=== PATIENT | female | born 2000 | race Caucasian/White ===

== ENCOUNTER 2022-06-07 11:45 | Inpatient (IN) ==
[2022-06-07] MEDS ORDERED: OXYTOCIN 30 UNITS/500 ML BAG IV PRN ×2 (12:51→13:45)
[2022-06-07] MEDS ORDERED: LIDOCAINE 1% LOCAL 20 ML VIAL INFIL PRN (12:51)
[2022-06-07] MEDS ORDERED: BETAMETH SOD PHOS/ACETATE IA 6 MG/ML IM STA (12:54)
--- NOTE | 2022-06-07 12:59 | Labor Progress Brief Note ---
Date of Service June 07, 2022 Assessment & Plan (1) : (2) premature rupture of membranes (PPROM) delivered, current hospitalization: Plan: pt is a 21 yo G1 @ 36.5 weeks PPROM at 10;00hrs SROM confirmed by Nitrazine FHR; CAT1 Ctx; absent VE: Ft/post EFW; 6lbs GBS status ; Unknown Plan Admit PCN for GBS prophylaxis Pitocin augmentation Results & Data ([facility]) Vital Signs (Past 12 Hours) Vital Signs Pulse BP 06/07/22 12:10 118 H 112/72
[2022-06-07 13:27] LABS: Hematocrit (blood only) 33.4 % (34.1-44.9); Hemoglobin 11.9 g/dl (12.0-16.0); Mean Corpuscular Hemoglobin 32.6 pg (25.0-34.0); Mean Corpuscular Hgb Conc 35.6 g/dL (32.0-36.0); Mean Corpuscular Volume 91.5 fL (80.0-100.0); Platelet Count 157 K/uL (130-400); RDW Coefficient of Variation 12.8 % (11.5-14.5); RDW Standard Deviation 42.5 fL (36.4-46.3); Red Blood Count 3.65 M/uL (3.93-5.22); White Blood Count 9.54 K/ul (4.8-10.8)
[2022-06-07] MEDS ORDERED: PENICILLIN G POTASSIUM 6 MU in DEXTROSE 5% 250 ML IV ONE (13:30)
[2022-06-07] MEDS: LACTATED RINGER'S 1,000 ML IV PRN ×2 (13:48→21:15)
[2022-06-07] MEDS: PENICILLIN G POTASSIUM 3 MU in DEXTROSE 5% 100 ML IV PRN ×2 (17:47→21:40)
[2022-06-07] MEDS ORDERED: ePHEDrine sulfate 50 MG/ML AMP ONE (18:44)
[2022-06-07] MEDS ORDERED: fentaNYL 2MCG/ML ROPIVACAINE 1.25MG/ML 100 ML BAG EPI ONE (18:45)
[2022-06-07] MEDS ORDERED: LIDOCAINE 2%/EPINEPHRINE 1:200,000 20 ML SDV ONE (18:45)
[2022-06-07] MEDS ORDERED: BUPIVACAINE 0.25% 30 ML VIAL ONE (18:45)
[2022-06-07] MEDS ORDERED: SODIUM CHLORIDE 0.9% INJ 10 ML VIAL ONE (18:45)
[2022-06-07] MEDS ORDERED: fentaNYL citrate 100 MCG/2 ML VIAL ONE (18:45)
--- NOTE | 2022-06-07 18:48 | Anesthesiology Consultation ---
Date of Service June 07, 2022 Assessment & Plan (1) Encounter for pre-operative examination: Chart Review Chart Review: Acceptable Risk for Labor Epidural History Height/Weight Height: 4 ft 8 in Weight: 61.689 kg Allergies Allergy/AdvReac Type Severity Reaction Status Date / Time omeprazole Allergy Intermediate Gastrointestinal Verified 06/07/22 16:05 Upset Medications Home Medications Medication Instructions Recorded Confirmed Last Taken prenat.vits,kolby,xso-vaux-tgdbo 1 tab PO DAILY 06/07/22 06/07/22 06/07/22 Active Medications Generic Name Dose Route Start Last Admin Trade Name Freq PRN Reason Stop Dose Admin Lactated Ringer's 1,000 mls @ 125 mls/hr 06/07/22 12:51 06/07/22 18:42 Lr IV 06/09/22 12:50 999 mls/hr .Q8H PRN Infusion L&D Protocol Protocol Penicillin G Potassium 3 mu/ 106 mls @ 100 mls/hr 06/07/22 15:51 06/07/22 17:47 Dextrose IV 06/17/22 15:50 100 mls/hr Q4H PRN Administration GBS(+) Until Delivery Oxytocin 30 units in 500 mls @ 6 mls/hr 06/07/22 13:45 06/07/22 15:22 Pitocin IV 06/09/22 13:44 0.36 units/hr .Q24H PRN 6 mls/hr Labor Induction/Augmentation Titration Protocol 0.36 UNITS/HR Past Medical History Medical History (Updated 06/07/22 @ 18:48 by Cyrus Herrera MD) Concussion Concussion with loss of consciousness Past Surgical History Surgical History (Updated 06/07/22 @ 18:47 by Cyrus Herrera MD) No significant past surgical history Social History Smoking Status: Never smoker Hx Alcohol Use: No Hx Substance Use: No substance use type: prescription drug Last Used Substance Other:: has medical marijuana card, currently not using since Physical Exam Vital Signs Last Vital Signs Temp 36.8 C 06/07/22 18:33 Pulse 79 06/07/22 17:52 Resp 20 06/07/22 18:33 BP 118/78 06/07/22 17:52 Testing Laboratory Results 06/07/22 13:04
[2022-06-07] MEDS ORDERED: fentaNYL 2MCG/ML ROPIVACAINE 1.25MG/ML 100 ML BAG EPI PRN (19:37)
[2022-06-07] MEDS ORDERED: NALOXONE HCL 1 MG in SODIUM CHLORIDE 0.9% 1000ML 1,000 ML IV PRN (19:37)
[2022-06-07] MEDS ORDERED: ePHEDrine sulfate 50 MG/ML AMP IV PRN (19:37)
[2022-06-07] MEDS ORDERED: ONDANSETRON INJ 2 MG/ML 2 ML VIAL IV PRN (19:37)
[2022-06-07] MEDS ORDERED: NALOXONE HCL 0.4 MG/1 ML VIAL/CARP IV PRN (19:37)
--- NOTE | 2022-06-07 20:36 | Labor Progress Brief Note ---
Date of Service June 07, 2022 Assessment & Plan (1) premature rupture of membranes (PPROM) delivered, current hos pitalization: Plan: Pt doing well No complaints PPROM Epidural placed FHR; CAT1 Ctx; 2-3mins VE; /-2 Pit; 6mu continue with pit augmentation Results & Data ([facility]) Vital Signs (Past 12 Hours) Vital Signs Temp Pulse Resp BP Pulse Ox 06/07/22 19:53 36.7 C 18 06/07/22 20:32 78 97 06/07/22 20:27 93 H 97 06/07/22 20:25 75 97/58 L 06/07/22 20:22 85 96 06/07/22 20:17 89 96 06/07/22 20:15 72 94 06/07/22 20:12 79 97 06/07/22 20:09 78 102/55 L 06/07/22 20:07 83 98 06/07/22 20:05 91 H 93 06/07/22 20:02 89 97 06/07/22 19:57 79 98 06/07/22 19:52 74 99 06/07/22 19:53 75 108/64 06/07/22 19:48 87 98 06/07/22 19:47 79 182/111 H 06/07/22 19:43 101 H 97 06/07/22 19:39 101 H 91 06/07/22 19:37 86 99 06/07/22 19:35 81 100/58 L 06/07/22 19:34 18 06/07/22 19:34 36.7 C 18 06/07/22 19:32 98 06/07/22 19:32 93 H 06/07/22 19:33 83 96/53 L 06/07/22 19:31 88 93 06/07/22 19:32 75 92/51 L 06/07/22 19:27 97 06/07/22 19:27 75 06/07/22 19:27 78 99/59 L 06/07/22 19:24 90 94 06/07/22 19:22 91 H 97 06/07/22 19:17 109 H 97 06/07/22 19:12 106 H 100 06/07/22 19:07 111 H 98 06/07/22 18:33 20 06/07/22 18:33 36.8 C 20 06/07/23 17:52 79 118/78 06/07/22 13:50 18 06/07/22 13:50 18 06/07/22 16:43 81 124/77 06/07/22 12:06 06/07/22 12:06 36.9 C 06/07/22 15:21 98 H 120/81 06/07/22 14:29 83 118/70 06/07/22 12:10 118 H 112/72
[2022-06-08] MEDS: LACTATED RINGER'S 1,000 ML IV PRN ×2 (00:46→05:37)
[2022-06-08] MEDS: PENICILLIN G POTASSIUM 3 MU in DEXTROSE 5% 100 ML IV PRN ×2 (01:30→05:35)
--- NOTE | 2022-06-08 01:33 | Labor Progress Brief Note ---
Date of Service June 08, 2022 Assessment & Plan (1) premature rupture of membranes (PPROM) delivered, current hos pitalization: Plan Late Entry Note Pt doing well Poor tracing from ext. monitor scalp placed VE; 10/100/-2 ctx 2-3mins Ctx. variables Pitocin d/c oxygen given FHR returned to baseline Continue monitoring Results & Data ([facility]) Vital Signs (Past 12 Hours) Vital Signs Temp Pulse Resp BP Pulse Ox 06/07/22 19:53 36.7 C 18 06/08/22 01:27 95 H 96 06/08/22 01:23 97 H 113/76 06/08/22 01:22 90 97 06/08/22 01:17 98 H 96 06/08/22 01:12 113 H 95 06/08/22 01:08 103 H 108/70 06/08/22 01:07 104 H 97 06/08/22 01:02 100 H 97 06/08/22 00:57 103 H 98 06/08/22 00:53 98 H 109/71 06/08/22 00:52 91 H 98 06/07/22 23:45 18 06/07/22 23:45 37.1 C 18 06/08/22 00:47 98 H 97 06/08/22 00:42 89 99 06/08/22 00:38 83 115/76 06/08/22 00:37 89 98 06/08/22 00:32 89 99 06/08/22 00:27 103 H 100 06/08/22 00:23 86 124/75 06/08/22 00:22 94 H 100 06/08/22 00:17 139 H 100 06/08/22 00:12 107 H 100 06/08/22 00:09 88 113/72 06/08/22 00:07 136 H 97 06/08/22 00:02 94 H 97 06/07/22 23:57 83 95 06/07/22 23:52 100 H 96 06/07/22 23:53 83 102/57 L 06/07/22 23:47 95 H 95 06/07/22 23:42 76 94 06/07/22 23:38 93 H 94/53 L 06/07/22 23:37 93 H 95 06/07/22 23:32 79 94 06/07/22 23:27 78 94 06/07/22 23:22 87 95 06/07/22 23:23 81 97/55 L 06/07/22 23:17 94 H 96 06/07/22 23:12 83 96 06/07/22 23:08 75 95/52 L 06/07/22 23:07 80 96 06/07/22 23:02 93 H 96 06/07/22 22:57 84 96 06/07/22 22:52 83 96 06/07/22 22:53 77 101/63 06/07/22 22:47 121 H 96 06/07/22 22:42 78 94 06/07/22 22:38 89 100/58 L 06/07/22 22:37 78 94 06/07/22 22:32 73 94 06/07/22 22:27 78 95 06/07/22 22:24 80 93/53 L 06/07/22 22:22 79 96 06/07/22 22:17 80 97 06/07/22 22:12 75 96 06/07/22 22:09 85 96/53 L 06/07/22 22:07 84 96 06/07/22 22:02 96 H 96 06/07/22 21:57 93 H 96 06/07/22 21:54 82 104/58 L 06/07/22 21:52 86 96 06/07/22 21:45 18 06/07/22 21:45 37.1 C 18 06/07/22 21:47 80 95 06/07/22 21:42 79 95 06/07/22 21:39 88 92/55 L 06/07/22 21:37 96 H 96 06/07/22 21:32 88 95 06/07/22 21:27 81 94 06/07/22 21:23 99 H 105/62 06/07/22 21:22 102 H 97 06/07/22 21:17 95 H 97 06/07/22 21:12 80 94 06/07/22 21:08 83 90/50 L 06/07/22 21:07 73 94 06/07/22 21:02 78 95 06/07/22 20:57 74 96 06/07/22 20:54 83 93/54 L 06/07/22 20:52 83 96 06/07/22 20:47 82 96 06/07/22 20:46 75 94 06/07/22 20:43 89 103/54 L 06/07/22 20:42 79 97 06/07/22 20:37 99 H 98 06/07/22 20:32 78 97 06/07/22 20:27 93 H 97 06/07/22 20:25 75 97/58 L 06/07/22 20:22 85 96 06/07/22 20:17 89 96 06/07/22 20:15 72 94 06/07/22 20:12 79 97 06/07/22 20:09 78 102/55 L 06/07/22 20:07 83 98 06/07/22 20:05 91 H 93 06/07/22 20:02 89 97 06/07/22 19:57 79 98 06/07/22 19:52 74 99 06/07/22 19:53 75 108/64 06/07/22 19:48 87 98 06/07/22 19:47 79 182/111 H 06/07/22 19:43 101 H 97 06/07/22 19:39 101 H 91 06/07/22 19:37 86 99 06/07/22 19:35 81 100/58 L 06/07/22 19:34 18 06/07/22 19:34 36.7 C 18 06/07/22 19:32 98 06/07/22 19:32 93 H 06/07/22 19:33 83 96/53 L 06/07/22 19:31 88 93 06/07/22 19:32 75 92/51 L 06/07/22 19:27 97 06/07/22 19:27 75 06/07/22 19:27 78 99/59 L 06/07/22 19:24 90 94 06/07/22 19:22 91 H 97 06/07/22 19:17 109 H 97 06/07/22 19:12 106 H 100 06/07/22 19:07 111 H 98 06/07/22 18:33 20 06/07/22 18:33 36.8 C 20 06/07/22 17:52 79 118/78 06/07/22 13:50 18 06/07/22 13:50 18 06/07/22 16:43 81 124/77 06/07/22 15:21 98 H 120/81 06/07/22 14:29 83 118/70
[2022-06-08] MEDS ORDERED: NURSING L&D Epidural Breakthrough Pain Update ONE (06:17)
[2022-06-08] MEDS ORDERED: SODIUM CHLORIDE 0.9% INJ 10 ML VIAL ONE (07:43)
[2022-06-08] MEDS ORDERED: BUPIVACAINE 0.25% 30 ML VIAL ONE (07:43)
[2022-06-08] MEDS ORDERED: fentaNYL citrate 100 MCG/2 ML VIAL ONE (08:19)
--- NOTE | 2022-06-08 08:28 | Obstetrical Progress Note ---
Date of Service June 08, 2022 Assessment & Plan (1) premature rupture of membranes (PPROM) delivered, current hos pitalization: Pt doing well VE;10/100/+1 Pitocin; 12 FHR; CAT1 . early decel will start pushing Anticipate VD Results & Data ([facility]) Vital Signs (Past 12 Hours) Vital Signs Temp Pulse Resp BP Pulse Ox 06/08/22 07:15 36.7 C 18 06/08/22 08:22 133 H 98/63 L 93 06/08/22 08:17 131 H 97 06/08/22 08:12 118 H 94 06/08/22 08:07 110 H 98 06/08/22 08:08 101 H 124/79 06/08/22 08:02 125 H 125/72 94 06/08/22 07:57 99 H 124/76 96 06/08/22 07:52 114 H 125/80 97 06/08/22 07:47 109 H 99 06/08/22 07:42 121 H 92 06/08/22 07:40 107 H 128/80 06/08/22 07:37 108 H 96 06/08/22 07:32 107 H 97 06/08/22 07:27 98 H 96 06/08/22 07:24 100 H 131/78 06/08/22 07:22 108 H 92 06/08/22 07:23 108 H 86 L 06/08/22 07:17 105 H 90 06/08/22 07:12 124 H 93 06/08/22 07:10 121 H 129/75 06/08/22 07:07 113 H 93 06/08/22 07:02 107 H 97 06/08/22 06:57 111 H 98 06/08/22 06:54 102 H 112/64 06/08/22 06:52 94 H 95 06/08/22 06:47 101 H 96 06/08/22 06:42 108 H 97 06/08/22 06:39 141 H 123/56 L 06/08/22 06:37 109 H 96 06/08/22 06:32 105 H 95 06/08/22 06:27 105 H 95 06/08/22 06:24 106 H 121/83 06/08/22 06:22 113 H 96 06/08/22 06:17 106 H 95 06/08/22 06:12 101 H 95 06/08/22 06:10 111 H 112/73 06/08/22 06:07 120 H 96 06/08/22 06:02 134 H 93 06/08/22 05:57 112 H 95 06/08/22 05:54 89 118/60 06/08/22 05:52 106 H 95 06/08/22 05:47 115 H 95 06/08/22 05:30 18 06/08/22 05:30 18 06/08/22 05:42 100 H 95 06/08/22 05:39 100 H 116/58 L 06/08/22 05:37 96 H 95 06/08/22 05:32 102 H 96 06/08/22 05:27 137 H 96 06/08/22 05:24 125 H 114/59 L 06/08/22 05:22 108 H 96 06/08/22 05:17 87 95 06/08/22 05:12 114 H 96 06/08/22 05:10 86 114/63 06/08/22 05:07 98 H 95 06/08/22 05:00 18 06/08/22 05:00 18 06/08/22 05:02 91 H 95 06/08/22 04:57 89 95 06/08/22 04:54 83 103/59 L 06/08/22 04:52 90 95 06/08/22 04:47 96 H 95 06/08/22 04:42 92 H 96 06/08/22 04:39 98 H 104/64 06/08/22 04:37 101 H 96 06/08/22 04:30 18 06/08/22 04:30 18 06/08/22 04:32 91 H 97 06/08/22 04:27 106 H 98 06/08/22 04:25 115 H 108/63 06/08/22 04:22 102 H 98 06/08/22 04:00 18 06/08/22 04:00 18 06/08/22 04:17 106 H 97 06/08/22 04:12 100 H 96 06/08/22 04:09 95 H 113/69 06/08/22 04:07 112 H 97 06/08/22 04:02 106 H 96 06/08/22 03:57 94 H 96 06/08/22 03:54 115 H 101/61 06/08/22 03:52 118 H 97 06/08/22 03:47 132 H 98 06/08/22 03:42 87 96 06/08/22 03:40 93 H 96/57 L 06/08/22 03:37 93 H 96 06/08/22 03:32 116 H 97 06/08/22 03:27 106 H 98 06/08/22 03:25 125 H 106/57 L 06/08/22 03:22 87 97 06/08/22 03:17 91 H 97 06/08/22 03:12 102 H 97 06/08/22 03:08 91 H 102/61 06/08/22 03:07 90 96 06/08/22 03:02 83 98 06/08/22 02:57 84 97 06/08/22 02:53 117 H 108/62 06/08/22 02:52 79 96 06/08/22 02:47 89 97 06/08/22 02:42 92 H 96 06/08/22 02:40 89 97/56 L 06/08/22 02:37 101 H 96 06/08/22 02:32 107 H 96 06/08/22 02:27 106 H 95 06/08/22 02:23 100 H 113/63 06/08/22 02:22 100 H 96 06/08/22 02:17 96 H 96 06/08/22 02:12 36.7 C 100 H 20 96 06/08/22 02:09 93 H 110/63 06/08/22 02:07 100 H 96 06/08/22 02:02 95 H 96 06/08/22 01:57 92 H 96 06/08/22 01:53 93 H 104/61 06/08/22 01:52 111 H 97 06/08/22 01:47 101 H 95 06/08/22 01:42 100 H 96 06/08/22 01:37 103 H 95 06/08/22 01:38 99 H 102/63 06/08/22 01:32 94 H 96 06/08/22 01:27 95 H 96 06/08/22 01:23 97 H 113/76 06/08/22 01:22 90 97 06/08/22 01:17 98 H 96 06/08/22 01:12 113 H 95 06/08/22 01:08 103 H 108/70 06/08/22 01:07 104 H 97 06/08/22 01:02 100 H 97 06/08/22 00:57 103 H 98 06/08/22 00:53 98 H 109/71 06/08/22 00:52 91 H 98 06/07/22 23:45 18 06/07/22 23:45 37.1 C 18 06/08/22 00:47 98 H 97 06/08/22 00:42 89 99 06/08/22 00:38 83 115/76 06/08/22 00:37 89 98 06/08/22 00:32 89 99 06/08/22 00:27 103 H 100 06/08/22 00:23 86 124/75 06/08/22 00:22 94 H 100 06/08/22 00:17 139 H 100 06/08/22 00:12 107 H 100 06/08/22 00:09 88 113/72 06/08/22 00:07 136 H 97 06/08/22 00:02 94 H 97 06/07/22 23:57 83 95 06/07/22 23:52 100 H 96 06/07/22 23:53 83 102/57 L 06/07/22 23:47 95 H 95 06/07/22 23:42 76 94 06/07/22 23:38 93 H 94/53 L 06/07/22 23:37 93 H 95 06/07/22 23:32 79 94 06/07/22 23:27 78 94 06/07/22 23:22 87 95 06/07/22 23:23 81 97/55 L 06/07/22 23:17 94 H 96 06/07/22 23:12 83 96 06/07/22 23:08 75 95/52 L 06/07/22 23:07 80 96 06/07/22 23:02 93 H 96 06/07/22 22:57 84 96 06/07/22 22:52 83 96 06/07/22 22:53 77 101/63 06/07/22 22:47 121 H 96 06/07/22 22:42 78 94 06/07/22 22:38 89 100/58 L 06/07/22 22:37 78 94 06/07/22 22:32 73 94 06/07/22 22:27 78 95 06/07/22 22:24 80 93/53 L 06/07/22 22:22 79 96 06/07/22 22:17 80 97 06/07/22 22:12 75 96 06/07/22 22:09 85 96/53 L 06/07/22 22:07 84 96 06/07/22 22:02 96 H 96 06/07/22 21:57 93 H 96 06/07/22 21:54 82 104/58 L 06/07/22 21:52 86 96 06/07/22 21:45 18 06/07/22 21:45 37.1 C 18 06/07/22 21:47 80 95 06/07/22 21:42 79 95 06/07/22 21:39 88 92/55 L 06/07/22 21:37 96 H 96 06/07/22 21:32 88 95 06/07/22 21:27 81 94 06/07/22 21:23 99 H 105/62 06/07/22 21:22 102 H 97 06/07/22 21:17 95 H 97 06/07/22 21:12 80 94 06/07/22 21:08 83 90/50 L 06/07/22 21:07 73 94 06/07/22 21:02 78 95 06/07/22 20:57 74 96 06/07/22 20:54 83 93/54 L 06/07/22 20:52 83 96 06/07/22 20:47 82 96 06/07/22 20:46 75 94 06/07/22 20:43 89 103/54 L 06/07/22 20:42 79 97 06/07/22 20:37 99 H 98 06/07/22 20:32 78 97 06/07/22 20:27 93 H 97
--- NOTE | 2022-06-08 11:20 | Delivery Summary ---
VAGINAL DELIVERY NOTE: The patient is a 21-year-old G1, P0 at 36 weeks and 6 days, who comes in with spontaneous rupture of membranes, clear fluid. She was augmented with oxytocin, had an epidural for her labor. She deliver ed a spontaneous vaginal delivery over an intact perineum of a live female, ELLE position. Apgars wer e 8 and 9. weight is pending. Delayed cord clamping was accomplished. Cord blood was obtaine d. Placenta delivered spontaneously and intact. The baby placed on the mother's chest for bonding. After the placenta was delivered, there was a little bit of gush of blood. Fundal pressure was appl ied and the bladder was emptied of 200 mL of clear urine. Pitocin was started with the IV continuous ly, baby stable. No further bleeding. Final sponge, needle and instrument counts were found to be c orrect. Estimated blood loss 250 mL. The patient was stable and normal recovery . Job ID: [id number]
[2022-06-08] MEDS ORDERED: bisacodyL 10 MG SUPP PR PRN (11:27)
[2022-06-08] MEDS ORDERED: HYDROCORTISONE ACETATE 25 MG SUPP PR PRN (11:27)
[2022-06-08] MEDS ORDERED: OXYTOCIN 30 UNITS/500 ML BAG IV PRN (11:27)
[2022-06-08] MEDS ORDERED: DIPHTHERIA/TETANUS/PERTUSSIS 0.5mL SYR/VIAL (Age 7+yrs) IM ONE (11:27)
[2022-06-08] MEDS ORDERED: BENZOCAINE 20% AER SPR 82.5 GM CAN EXT PRN (11:27)
--- NOTE | 2022-06-08 12:39 | Anesthesia Procedure Note ---
Date of Service June 08, 2022 Anesthesia Post Epidural Note Vital Signs Vital Signs: Temp Pulse Resp BP Pulse Ox 36.9 C 93 H 18 101/58 L 85 L 06/08/22 09:00 06/08/22 11:44 06/08/22 11:45 06/08/22 11:44 06/08/22 10:13 Pain Intensity Lower Back: Pain Intensity: 1 Notes Mental Status: alert / awake / arousable and participated in evaluation Nausea / Vomiting: adequately controlled Pain: adequately controlled Airway Patency, RR, SpO2: stable & adequate BP & HR: stable & adequate Hydration State: stable & adequate Neuraxial Anesthesia: was administered and sensory block is resolving Anesthetic Complications: no major complications apparent and Pt Satisfied with anesthetic care Epidural: Removed without complications and With tip intact
[2022-06-08] MEDS: ACETAMINOPHEN 325 MG TAB PO PRN (19:37)
[2022-06-08] MEDS: DOCUSATE SODIUM 100 MG CAP PO SCH (19:37)
[2022-06-09] MEDS: ACETAMINOPHEN 325 MG TAB PO PRN (03:03)
[2022-06-09] MEDS ORDERED: FERROUS SULFATE 325 MG TAB PO SCH (08:00)
--- NOTE | 2022-06-09 09:37 | Obstetrical Progress Note ---
Date of Service June 09, 2022 Assessment & Plan Admission and Anticipated Discharge Date Admission Date: June 08, 2022 Subjective Patient is seen and examined. She feels well, no complaints. Ambulating without dizziness Voiding without difficulty Tolerating regular diet with out N&V Bleeding is minimal No fever/ chills/ CP/ SOB/ N&V/ Leg pain Breast feeding without problems Lab Results 06/07/22 06/07/22 Range/Units 12:08 13:04 WBC 9.54 (4.8-10.8) K/ul RBC 3.65 L (3.93-5.22) M/uL Hgb 11.9 L (12.0-16.0) g/dl Hct 33.4 L (34.1-44.9) % MCV 91.5 (80.0-100.0) fL MCH 32.6 (25.0-34.0) pg MCHC 35.6 (32.0-36.0) g/dL RDW Std Deviation 42.5 (36.4-46.3) fL RDW Coeff of Sameera 12.8 (11.5-14.5) % Plt Count 157 (130-400) K/uL MPV 10.0 (9.4-12.3) fL SARS-CoV-2, RNA, NAAT NEGATIVE (NEGATIVE) Vital Signs Temp Pulse Resp BP Pulse Ox O2 Del Method 06/09/22 03:00 36.5 C 88 18 100/69 Room Air 06/08/22 23:15 36.6 C 87 18 99/66 L 97 Room Air Hb: 8.1 Htc: 23.4 this morning PE: General: Alert, orientedx3, NAD Abd: soft, NT, fundus firm, below Umbilicus Perineum intact, Lochia rubra minimal Ext; NT, no edema AP: 21 yo s/p , ppd# 1 VSS Afebrile doing well Anemic, order IV iron Continue routine care All questions were answered D/C home tomorrow Results & Data ([facility]) Vital Signs (Past 12 Hours) Vital Signs Temp Pulse Resp BP Pulse Ox O2 Del Method 06/09/22 03:00 36.5 C 88 18 100/69 Room Air 06/08/22 23:15 36.6 C 87 18 99/66 L 97 Room Air
[2022-06-09] MEDS: PRENATAL VITAMIN 1 TAB PO SCH (09:45)
[2022-06-09] MEDS: DOCUSATE SODIUM 100 MG CAP PO SCH ×2 (09:46→19:33)
[2022-06-09] MEDS: IRON SUCROSE 200 MG in 0.9 % SODIUM CHLORIDE 100 ML IV ONE ×2 (11:14→11:50)
[2022-06-09 13:04] LABS: Hematocrit (blood only) 23.4 % (37.0-47.0); Hemoglobin 8.1 g/dl (12.0-16.0); Mean Corpuscular Hemoglobin 32.7 pg (25.0-34.0); Mean Corpuscular Hgb Conc 34.6 g/dL (32.0-36.0); Mean Corpuscular Volume 94.4 fL (80.0-100.0); Mean Platelet Volume 9.9 fL (9.4-12.4); Platelet Count 110 K/uL (130-400); RDW Coefficient of Variation 13.3 % (11.5-14.5); RDW Standard Deviation 46.1 fL (36.4-46.3); Red Blood Count 2.48 M/uL (4.20-5.40)
[2022-06-09] MEDS: IBUPROFEN 600 MG TAB PO PRN (16:01)
[2022-06-09] MEDS ORDERED: bisacodyL 5 MG TABEC PO SCH (20:00)
[2022-06-09] MEDS: FERROUS SULFATE 325 MG TAB PO SCH (20:24)
[2022-06-10] MEDS: IBUPROFEN 600 MG TAB PO PRN ×3 (05:03→15:45)
[2022-06-10 07:08] LABS: Hematocrit (blood only) 25.9 % (37.0-47.0); Hemoglobin 8.9 g/dl (12.0-16.0)
[2022-06-10] MEDS: FERROUS SULFATE 325 MG TAB PO SCH (09:14)
[2022-06-10] MEDS: PRENATAL VITAMIN 1 TAB PO SCH (09:14)
[2022-06-10] MEDS: DOCUSATE SODIUM 100 MG CAP PO SCH (09:14)
--- NOTE | 2022-06-10 10:03 | Obstetrical Progress Note ---
Date of Service June 10, 2022 Assessment & Plan (1) Normal course: Pt doing well PPD #2 No complaints d/c home with instructions Subjective Ambulation: ambulating normally Voiding: no voiding problems Passing Gas:: Yes Diet Tolerance:: regular diet Lochia:: Small Feeding Type:: breast feeding Review of Systems All systems reviewed & are unremarkable except as noted in HPI & below Physical Exam Constitutional WD/WN, vitals as above well developed and well nourished Eyes PERRL, conjunctivae normal, anicteric sclerae Neck trachea midline, no thyromegaly Respiratory normal respiratory effort, lungs clear to auscultation Auscultation: no crackles, no rales and no wheezes Cardiovascular RRR, no murmur, no edema Gastrointestinal (Abdomen) normal bowel sounds, soft, nontender, no hepatosplenomegaly Uterus is below umbilicus Musculoskeletal no cyanosis or clubbing, extremities motor strength 5/5 Skin no rashes, warm and dry Neurologic patellar DTR's 2+ bilat, sensation intact Psychiatric A+Ox3, euthymic affect Genitourinary normal external appearance Results & Data ([facility]) Vital Signs (Past 12 Hours) Vital Signs Temp Pulse Resp BP Pulse Ox O2 Del Method 06/10/22 09:00 36.6 C 83 18 100/68 Room Air 06/09/22 23:00 36.8 C 77 16 104/72 95 Room Air
[2022-06-10] MEDS: ACETAMINOPHEN 325 MG TAB PO PRN (12:56)
== END 2022-06-10 18:35 | disposition home or self-care (01) | DRG 807 ==
LOC: OPB 11:45 → 4S1 11:46 → 4E2 06-08 14:44

== ENCOUNTER 2024-01-18 01:38 | Inpatient (IN) ==
[2024-01-18] MEDS ORDERED: ACETAMINOPHEN 500 MG TAB PO PRN (02:34)
[2024-01-18] MEDS ORDERED: OXYTOCIN 30 UNITS/NSS 30 UNITS/500 ML BAG IV PRN ×2 (02:38→09:13)
[2024-01-18] MEDS ORDERED: LIDOCAINE 1% LOCAL 20 ML VIAL INFIL PRN (02:38)
--- NOTE | 2024-01-18 02:38 | History & Physical Report ---
Date of Service January 18, 2024 Assessment & Plan (1) Spontaneous rupture of amniotic membranes: Plan: 23 yo at 39.6 wks SROM at 00:15, back pain, VSSA febrile FHR reassuring GBS neg Plan to admit, labs, IVF, Oxytocin for IOL Patient desires to wait until her partner will arrive in 1.5 hours then start Oxytocin per protocol Continue to monitor History of Present Illness Chief Complaint: Leaking Primary Care Provider: Paco Wu MD Patient is a 23 yo at 39.6 wks, felt LOF at 00:15 in bed and kept leaking in the BR It was clear, happened one more time while getting into car No VB/ Ctxs but has back discomfort +FM Allergies Allergy/AdvReac Type Severity Reaction Status Date / Time omeprazole Allergy Intermediate Gastrointestinal Verified 01/18/24 02:04 Upset Home Medications Medication Instructions Recorded Confirmed Type prenat.vits,kolby,oty-cluw-hwois 1 tab PO DAILY 06/07/22 01/18/24 History ferrous sulfate 325 mg (65 mg 325 mg PO BID #30 tabs 06/10/22 01/18/24 Rx iron) tablet,delayed release Patient History Medical History Concussion Concussion with loss of consciousness Social History Smoking Status: Never smoker Hx Alcohol Use: No Hx Substance Use: No Preferred Language: [place] Communication Ability: Effective Chief Of Staff Required: Yes and Voice Beliefs That Will Affect Care: None marital status: Single Current Living Situation: Significant Other Current Living Situation Comment: lives iwth mother Other Information That Helps Us Care for You: No Feels Safe at Home: Yes Safety Concerns: Feels Safe At This Time Assistive Devices: None OB History PPRO at 36 wks, [employer] History No h/o STD's, no h/o GC/ Chlam/ HSV Review of Systems as per Subjective / HPI Physical Exam Constitutional: WD/WN, vitals as above Gastrointestinal (Abdomen): normal bowel sounds, soft, nontender, no hepatosplenomegaly Genitourinary: normal external appearance (dry) Manual OB Exam: + cervical dilation 3 cm, + cervical effacement 50% and + station -2 OB Exam Monitor Tracing: + external uterine monitor used and + category I Nitrazine neg Amnisure neg SSE: Pooling+, Ferning + on slide Results & Data Vital Signs (Past 12 Hours) Vital Signs Temp Pulse Resp BP 01/18/24 01:55 92 H 121/79 01/18/24 01:53 37.0 C 18
[2024-01-18 03:16] LABS: Hemoglobin 11.2 g/dl (12.0-16.0); Mean Corpuscular Hemoglobin 31.4 pg (25.0-34.0); Mean Corpuscular Hgb Conc 33.9 g/dL (32.0-36.0); Mean Corpuscular Volume 92.4 fL (80.0-100.0); Mean Platelet Volume 9.5 fL (9.4-12.4); Platelet Count 156 K/uL (130-400); RDW Coefficient of Variation 12.9 % (11.5-14.5); RDW Standard Deviation 42.5 fL (36.4-46.3); Red Blood Count 3.57 M/uL (4.20-5.40); White Blood Count 8.87 K/ul (4.8-10.8)
[2024-01-18] MEDS: LACTATED RINGER'S 1,000 ML IV PRN (04:58)
[2024-01-18] MEDS ORDERED: diphenhydrAMINE 50 MG/ML VIAL IV PRN (05:04)
[2024-01-18] MEDS ORDERED: NALOXONE HCL 1 MG in SODIUM CHLORIDE 0.9% 1,000 ML IV PRN (05:04)
[2024-01-18] MEDS ORDERED: ePHEDrine sulfate 50 MG/ML AMP IV PRN (05:04)
[2024-01-18] MEDS ORDERED: NALBUPHINE HCL INJ 10 MG/ML AMP IV PRN (05:04)
[2024-01-18] MEDS ORDERED: SODIUM CHLORIDE 0.9% PF INJ 10 ML VIAL EPI PRN (05:04)
[2024-01-18] MEDS ORDERED: fentaNYL citrate PF 100 MCG/2 ML VIAL EPI PRN (05:04)
[2024-01-18] MEDS ORDERED: ONDANSETRON INJ 2 MG/ML 2 ML VIAL IV PRN (05:04)
[2024-01-18] MEDS ORDERED: LIDOCAINE 2% MPF LOCAL 5 ML VIAL EPI PRN (05:04)
[2024-01-18] MEDS ORDERED: NALOXONE HCL 0.4 MG/1 ML VIAL/CARP IV PRN (05:04)
[2024-01-18] MEDS ORDERED: ROPIVACAINE 0.5% PF 5 MG/ML 20 ML VIAL EPI PRN (05:04)
[2024-01-18] MEDS ORDERED: BUPIVACAINE 0.25% PF 30 ML VIAL EPI PRN (05:04)
--- NOTE | 2024-01-18 05:11 | Anesthesiology Consultation ---
Date of Service January 18, 2024 Assessment & Plan (1) Encounter for pre-operative examination: Chart Review Chart Review: Patient NOT seen in Pre Admission Testing and Acceptable Risk for Labor Epidural Consults Requested none History Height/Weight Height: 4 ft 8 in Weight: 65.771 kg Allergies Allergy/AdvReac Type Severity Reaction Status Date / Time omeprazole Allergy Intermediate Gastrointestinal Verified 01/18/24 02:04 Upset Medications Home Medications Medication Instructions Recorded Confirmed Last Taken prenat.vits,kolby,feu-wull-jqaew 1 tab PO DAILY 06/07/22 01/18/24 01/17/24 ferrous sulfate 325 mg (65 mg 325 mg PO BID #30 tabs 06/10/22 01/18/24 01/17/24 iron) tablet,delayed release Active Medications Generic Name Dose Route Start Last Admin Trade Name Freq PRN Reason Stop Dose Admin Lactated Ringer's 1,000 mls @ 125 mls/hr 01/18/24 02:38 01/18/24 04:58 Lr IV 01/20/24 02:37 999 mls/hr .Q8H PRN Administration L&D Protocol Protocol Past Medical History Medical History Concussion Concussion with loss of consciousness Exercise / Class Metabolic Activity II 4-5 Yardwork/Stairs/Walk up hill Social History Smoking Status: Never smoker Hx Alcohol Use: No Hx Substance Use: No substance use type: prescription drug Last Used Substance Other:: has medical marijuana card, currently not using since Physical Exam Vital Signs Last Vital Signs Temp 37.0 C 01/18/24 01:53 Pulse 106 H 01/18/24 05:30 Resp 18 01/18/24 01:53 BP 121/79 01/18/24 01:55 Pulse Ox 97 01/18/24 05:30 Testing Laboratory Results 01/18/24 02:57
[2024-01-18] MEDS: LIDOCAINE 2%/EPINEPHRINE 1:200,000 20 ML PF EPI STA (05:36)
[2024-01-18] MEDS: fentaNYL citrate PF 100 MCG/2 ML VIAL EPI STA (05:36)
[2024-01-18] MEDS: BUPIVACAINE 0.25% PF 30 ML VIAL EPI STA (05:36)
[2024-01-18] MEDS: fentANYL 2 MCG/ML BUPIVacaine 0.125%-NSS 100ML BAG EPI PRN (05:37)
[2024-01-18] MEDS: OXYTOCIN 30 UNITS/NSS 30 UNITS/500 ML BAG IV PRN (06:06)
[2024-01-18] MEDS: BUPIVACAINE 0.25% PF 30 ML VIAL ONE (06:11)
[2024-01-18] MEDS: fentANYL 2 MCG/ML BUPIVacaine 0.125%-NSS 100ML BAG ONE (06:12)
[2024-01-18] MEDS: fentaNYL citrate PF 100 MCG/2 ML VIAL ONE (06:12)
[2024-01-18] MEDS: ePHEDrine sulfate 50 MG/ML AMP ONE (06:12)
[2024-01-18] MEDS: SODIUM CHLORIDE 0.9% PF INJ 10 ML VIAL EPI STA (06:13)
[2024-01-18] MEDS: SODIUM CHLORIDE 0.9% PF INJ 10 ML VIAL ONE (06:13)
[2024-01-18] MEDS: LIDOCAINE 2%/EPINEPHRINE 1:200,000 20 ML PF ONE (06:13)
--- OUTSIDE RECORDS SUMMARY | 2024-01-18 06:42 | External Medical Summary | Summary of Care ---
Author Name Unknown Organization [facility] Address [address] [address] Phone [phone] Care Team Providers Care Butter Wrapper Name Role Phone Nelson Moreno DO Primary Care Provider [phone] Reason for Visit * Reason Comments Return Visit Encounter Details Date Type Department Care Team (Late st Contact Info) Description 01/09/2024 1:30 PM EDT Office Visit Gynecology/[facility]st[facility] s [facility] [address] [facility] [place] [address] Jamila Goodman CRNP [address] [place] [address] Supervision of other normal , antepartum*; Anemia affecting in third trimester; Depression complicating , antepartum; History of delivery Allergies Active Allergy Reactions Criticality Noted Date Comments Levonorgestrel-Ethinyl Estrad 03/22/2017 Moodiness, depression Omeprazole 03/05/2019 Nausea and vomiting documented as of this encounter (statuses as of 01/09/2024) Medications Medication Sig Dispensed Refills Start Date End Date Status Formula 28-0.8-235 MG Oral Capsule Take by mouth . Active Breast PumpIndications:[place] feeding status of mother SHI 06/30/22, Z39.1 1 Each 04/06/2022 Active Citalopram Hydrobromide 10 MG Oral Tablet (CeleXA) Take 1 Tablet by mouth in the morning. 30 Tablet 5 03/20/2023 Active Additional Information Patient not taking.Reported on 06/21/2023 Ferrous Sulfate 325 (65 Fe) MG Oral Tablet (Feosol)Indications: Anemia affecting in third trimester Take 1 Tablet by mouth in the morning and 1 Tablet before bedtime. 60 Tablet 3 11/14/2023 Active documented as of this encounter (statuses as of 01/09/2024) Active Problems Problem Noted Date Diagnosed Date Supervision of other normal , antepartu m 06/27/2023 Depression complicating , antepartum Overview: D/c celexa with knowledge of . History of delivery 06/27/2023 Overview: PPROM at 36w3d. Discussed/declined vaginal progesterone Anemia affecting in third trimester Medical marijuana use 07/26/2021 Overview: Pt st in september 2020 PTSD (post-traumatic stress disorder) 08/25/2020 JONAS (generalized anxiety disorder) 08/25/2020 Severe episode of recurrent major depressive disorder, without psychotic features 08/25/2020 Lactose intolerance 11/17/2017 Estimated Date of Delivery Comme nts Yes 01/19/2024 Based on last me nstrual period of 04/14/2023 documented as of this encounter (statuses as of 01/09/2024) Resolved Problems Problem Noted Date Diagnosed Date Resolved Date Polyhydramnios 05/31/2022 07/25/2022 Overview: CONSIDERATIONS: Polyhydramnios is the presence of elevated levels of amniotic fluid index (DILEEP) greater than or equal to 24 cm or a maximum of vertical pocket (MVP) greater than or equal to 8 cm. Polyhydramnios is categorized as: o Mild DILEEP of 24.0-29.9 cm o Moderate DILEEP of 30.0-34.9 cm o Severe DILEEP of greater than or equal to 35 cm We discussed potential etiologies and complications associated with polyhydramnios. Mild polyhydramnios often resolves spontaneously without negative effects on the . RECOMMENDATIONS: In non-diabetic patients, re-screen for GDM if not done within the previous 4 weeks. Perform MFM (Maternal- Medicine) ultrasound in 4 weeks for assessment of growth and fluid. Recommend delivery at 39 weeks. , normal first 12/14/202107/13 Depression complicating , antepartum 12/15/19 22 07/25/2022 Current moderate episode of major depressive disorder without prior episode 03/30/2020 documented as of this encounter (statuses as of 01/09/2024) Immunizations Name Administration Dates Next Due DTaP Dipth/Tet/Acell Pertussis (Infanrix), Peds 11/01/2006,10/30/2003,04/03/2002,02/14,2001 HIB PRP-OMP, 3 dose (Pedvax) 09/27/2002,02/15/20 02,2001 HPV Vaccine, 9-Valent 09/19/2017,03/22/2017 HPV Vaccine, Bivalent 09/18/2014 Hepatitis A, Ped/Adol., 18 y ear and below, 2-Dose 09/18/2014 Hepatitis B, 0-19 yrs 09/27/2002,02/14/2002,11/12 IPV - Polio Virus Vaccine (Inact) 2006,02/03/2003,02/14/2002,11/27 MMR - Measles/Mumps/Rubella Vaccine 12/01/2006,0 09/27/2002 Meningococcal Conjugate Vaccine 09/28/2014 Meningococcal Conjugate Vacc ine (Menactra/Menveo) 11/17/2017 Pneumococcal Conjugate Vacc, 13 Valent (Prevnar) 09/27/2002,04/03/2002,02/14/2002,11/27 Seasonal Influenza Intranasal 03/03/2004, 003,07/09/2002 Seasonal Influenza, PF, 6 M & above, IM , (FluLaval or Fluzone) 04/06/2022,02/03/2020,02/14/2019,03/22 Seasonal Influenza, Quadriva lent, No Preserve, IM 03/01/2016 Seasonal Influenza, Split, I IV3, With Preserve, Inj 03/17/2009,02/20/2008,02/20/2007,03/13,02/18/2005 TDAP (age 10 and older)(Boostrix) 04/06/2022,05/2020 TDAP, Age 7 and older, IM (Adacel) 11/14/2023, Varicella Vaccine (Chicken Pox) 12/01/2006,09/27 documented as of this encounter Social History Tobacco Use Types Packs/Day Years Used Date Smoking Tobacco: Never Smokeless Tobacco: Never Alcohol Use Standard Drinks/Week Comments No 0 (1 standard drink = 0.6 oz pur e alcohol) PHQ-2 Answer Date Recorded PHQ Adult Total Score 14 05/31/2022 Hunger Vital Sign Answer Date Recorded Within the past 12 months, y ou worried that your food would run out before you got the money to buy more. Never true 06/27/19 24 Within the past 12 months, t he food you bought just didn't last and you didn't have money to get more. Never true 06/27/2023 [place] Depression Scale Answer Date Recorded [place] Depression Scale Total 9 11/28/2023 The thought of harming myself has occurred to me . Never 11/28/2023 Childcare Answer Date Recorded Do you feel overwhelmed with taking care of a child, family member or friend? No 06/27/2023 Does your family need help f inding childcare? (Household - for ages 0-17 years) Not on file 06/27/2023 Clothing Answer Date Recorded Have you been unable to get clothing when it was really needed? No 06/27/2023 Is your family able to get c lothes or diapers when needed? (Household - for ages 0-17 years) Not on file 06/27/2023 Personal Safety Answer Date Recorded Do you feel unsafe or have concerns for your saf ety? No 06/27/2023 Do you have concerns for you r family's safety? (Household - for ages 0-17 years) Not on file 06/27/2023 Utilities Answer Date Recorded Do you have trouble paying y our heating, water, or electric bill? No 06/27/2023 Is your family able to pay t he heat, water, or electric bill? (Household - for ages 0-17 years) Not on file 06/27/2023 Does your family have access to good internet? (Household - for ages 0-17 years) Not on file 06/27/2023 Employment Status Answer Date Recorded Are you unemployed or without regular income? Ye s 06/27/2023 Does the household have a re gular source of income? (Household - for ages 0-17 years) Not on file 06/27/2023 Social Connections Answer Date Recorded How often do you feel lonely or isolated from those around you? Sometimes 06/27/2023 Financial Resource Strain Answer Date R ecorded Do you have any trouble payi ng for your medications, or do you think you might in the future? No 06/27/2023 Does your family have troubl e paying for medicine? (Household - for ages 0-17 years) Not on file 06/27/2023 Transportation Needs Answer Date Record ed READ ONLY Do you have troubl e getting a ride to medical visits or work? Never True 06/27/2023 Does your family have a hard time getting a ride to doctors visits? (Household - for ages 0-17 years) Not on file 06/27/2023 Has lack of transportation k ept you from medical appointments, meetings, work, or from getting things needed for daily living? Check all that apply. (Adult - for ages 18 years and over) Not on file 06/27/2023 Do you (or your family) have trouble finding or paying for a ride (transportation)? (Household - for ages 0-17 years) Not on file 06/27/2023 Housing Stability Answer Date Recorded Do you currently live in a s helter or have no steady place to sleep at night? No 06/27/2023 READ ONLY Do you think you a re at risk of becoming homeless? No 06/27/2023 Does your family worry about paying for your home or becoming homeless? (Household - for ages 0-17 years) Not on file 0 06/27/2023 Are you homeless or worried that you might be in the future? (Adult - for ages 18 years and over) Not on file Are you (or your family) mandi eless or worried that you might be in the future? (Household - for ages 0-17 years) Not on file Food Insecurity Answer Date Recorded Do you need food for this week? No 06/27/2023 Are you able to get enough f ood for your family? (Household - for ages 0-17 years) Not on file 06/27/2023 Does your family need food t his week? (Household - for ages 0-17 years) Not on file 06/27/2023 Do you always have enough fo od for your family? (Household - for ages 0-17 years) Not on file 06/27/2023 Estimated Date of Delivery Comme nts Yes 01/19/2024 Based on last me nstrual period of 04/14/2023 Sex and Gender Information Value Date Recorded Sex Assigned at Female 08/25/2020 8:36 AM EDT Gender Identity Female 08/25/2020 8:36 AM EDT Sexual Orientation Straight 08/25/2020 8: 36 AM EDT Job Start Date Occupation Industry Not on file Not on file Not on file documented as of this encounter Last Filed Vital Signs Vital Sign Reading Time Taken Comments Blood Pressure 106/72 01/09/2024 1:26 PM EDT Pulse - - Temperature - - Respiratory Rate - - Oxygen Saturation - - Inhaled Oxygen Concentration - - Weight 65.8 kg (145 lb) 01/09/2024 1:26 PM EDT Height 142.2 cm (4' 8") 01/09/2024 1:26 PM EDT Body Mass Index 32.51 01/09/2024 1:26 PM EDT documented in this encounter Progress Notes * Jamila Goodman CRNP - 01/09/2024 1:42 PM EDT 38w4d Feeling a lot of pelvic pressure, pain at pubic symphysis. Doesn't think she is feeling any contractions, denies bleeding, leaking fluid. 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 Hoping to deliver in [place], but only being seen by this office. Records printed for pt to take if she does end up going in to labor while in [place]. GBS done today. News Department Intern Documentation Provider requested slack cooper. Name of slack cooper: Apoorva Borrero CBC today. DALI Murray documented in this encounter Nursing Notes * Apoorva Wallace LPN - 01/09/2024 1:30 PM EDT 38w4d GBS today documented in this encounter Plan of Treatment Pending Results Name Type Priority Associated Diagnoses Date /Time GROUP B STREP CULTURE/PCR Lab Routine Supervision of other normal , antepartum 01/09/2024 1:48 PM EDT Scheduled Orders Name Type Priority Associated Diagnoses Orde r Schedule CBC WITH WBC DIFFERENTIAL AND ANEMIA REFLEX WORKUP Lab Routine Supervision of other normal , antepartum Expected: 01/09/2024, Expires: 01/08/2025 Health Maintenance Due Date Last Done Comments COVID-19 Vaccine (2022-2 4 season) 2023 Depression Monitoring 05/31/2023 05/31/2022 Influenza Vaccine (FLU shot) (#1) 2024 04/06/2022, 02/03/2020, 02/14/2019, Additional history exists Gonorrhea / Chlamydia Screen 06/27/2024, 11/17/2021, 02/03/2020, Additional history exists Pap Smear 06/27/2026 06/27/2023 DTap/Tdap Vaccines (10 - Td or Tdap) 11/13/2033 11/14/2023, 04/06/2022, 08/13/2020, Additional history exists Hepatitis B Vaccine Completed 09/27/2002, 02/14/2002, 2001 Pneumococcal Vaccine: Pediat rics (0 to 5 Years) and At-Risk Patients (6 to 64 Years) Completed 09/27/2002, 04/03/2002, 02/14/2002, Additional history exists HPV (Gardasil) Vaccine Completed 8, 03/22/2017, 09/18/2014 MENINGOCOCCAL (MENACTRA/MENVEO) Completed 8, 09/28/2014 documented as of this encounter Medical Devices Not on filedocumented as of this encounter Visit Diagnoses Diagnosis Supervision of other normal , antepartum- Primary Anemia affecting in third trimester Depression complicating , antepartum Mental disorders of mother, antepartum History of delivery documented in this encounter Care Teams Butter Wrapper Relationship Specialty Start Date End Date Nelson Moreno DO PCP - General Internal Medicine 07/22/20 documented as of this encounter
--- OUTSIDE RECORDS SUMMARY | 2024-01-18 06:42 | External Medical Summary | Summary of Care ---
Author Name Unknown Organization [facility] Address [address] [place] [address] Phone [phone] Care Team Providers Care Office Bookkeeper Name Role Phone Nelson Moreno DO Primary Care Provider [phone] Reason for Visit * Reason Comments Return Visit Encounter Details Date Type Department Care Team (Late st Contact Info) Description 01/16/2024 11:00 AM EDT Office Visit Gynecology/Obstetric s [facility] [address] [facility] [place] [address] Cheyenne Dooley PA-C [address] [place] [address] Supervision of other normal , antepartum*; Short interval between pregnancies complicating , antepartum; Anemia affecting in third trimester; Depression complicating , antepartum; History of delivery Allergies Active Allergy Reactions Criticality Noted Date Comments Levonorgestrel-Ethinyl Estrad 03/22/2017 Moodiness, depression Omeprazole 03/05/2019 Nausea and vomiting documented as of this encounter (statuses as of 01/16/2024) Medications Medication Sig Dispensed Refills Start Date End Date Status Formula 28-0.8-235 MG Oral Capsule Take by mouth . Active Breast PumpIndications:[place] st feeding status of mother SHI 06/30/22, [...] as of this encounter (statuses as of 01/16/2024) Active Problems Problem Noted Date Diagnosed Date [...] as of this encounter (statuses as of 01/16/2024) Resolved Problems Problem Noted Date Diagnosed Date [...] normal first 12/14/202107/13 Depression complicating , antepartum 12/15/1907/25/2022 Current moderate episode of major depressive disorder without prior episode 03/30/2020 documented as of this encounter (statuses as of 01/16/2024) Immunizations Name Administration Dates Next Due DTaP Dipth/Tet/Acell Pertussis (Infanrix), Peds 11/01/2006,10/30/2003,04/03/2002,02/14,2001 HIB PRP-OMP, 3 dose (Pedvax) 09/27/2002,02/15/20 02,2001 HPV Vaccine, 9-Valent 09/19/2017,03/22/2017 HPV Vaccine, Bivalent 09/18/2014 Hepatitis A, Ped/Adol., 18 y ear and below, 2-Dose 09/18/2014 Hepatitis B, 0-19 yrs 09/27/2002,02/14/2002,11/12 IPV - Polio Virus Vaccine (Inact) 2006,02/03/2003,02/14/2002,11/27 Influenza Vaccine, Live, Int ranasal, Trivalent (Flumist) 03/03/2004,03/31/2003,07/09/2002 MMR - Measles/Mumps/Rubella Vaccine 12/01/2006,0 09/27/2002 Meningococcal Conjugate Vaccine 09/28/2014 Meningococcal Conjugate Vacc ine (Menactra/Menveo) 11/17/2017 Pneumococcal Conjugate Vacc, 13 Valent (Prevnar) 09/27/2002,04/03/2002,02/14/2002,11/27 Seasonal Influenza, PF, 6 M & above, IM , (FluLaval or Fluzone) 04/06/2022,02/03/2020,02/14/2019,11/08 /2017 Seasonal Influenza, Quadriva lent, No Preserve, IM 03/01/2016 Seasonal Influenza, Trivalen t, (IIV3), with Preserv, (Fluzone) 03/17/2009,02/20/2008,02/20/2007,03/13,02/18/2005 TDAP (age 10 and older)(Boostrix) 04/06/2022,05/2020 [...] money to get more. Never true 06/27/2023 [place] Depression Scale Answer Date Recorded [place] Depression Scale Total 9 11/28/2023 The thought [...] Sign Reading Time Taken Comments Blood Pressure 108/70 01/16/2024 11:02 AM EDT Pulse - - Temperature - - Respiratory Rate - - Oxygen Saturation - - Inhaled Oxygen Concentration - - Weight 68.2 kg (150 lb 6.4 oz) 01/16/2024 11:02 AM EDT Height - - Body Mass Index 33.72 01/09/2024 1:26 PM EDT documented in this encounter Progress Notes * Cheyenne Dooley PA-C - 01/16/2024 11:22 AM EDT Darshana Estrada is a 23 year old female here for her routine OB appointment at 39w4d Her Estimated Date of Delivery: 01/19/24 Reporting an increase in vaginal discharge since yesterday. Denies any big gushes of fluid, but feels her underwear was more wet when she used the restroom. Having irregular contractions that are not increasing in frequency or intensity. Unable to time contractions. She does note that movement has slowed down as the has progressed, but still affirms good FM. Describes feeling more of a "rolling" versus distinct kicks. REVIEW OF SYSTEMS She affirms movement. Denies vaginal bleeding, LOF, regular contractions. PHYSICAL EXAM Filed Vitals: 01/16/24 1102 BP: 108/70 Weight: 68.2 kg (150 lb 6.4 oz) +FHT 120s Fundal height 38 cm Position: Cephalic Nitrazine negative. No pooling. CE: 05/24%/-3 [employer] Plans Staff Officer Documentation Patient offered float tender and accepted. Name of float tender: Florinda Guzmán CMA. ASSESSMENT/PLAN Supervision of other normal , antepartum (Primary) Short interval between pregnancies complicating , antepartum Anemia affecting in third trimester Depression complicating , antepartum History of delivery Supervision of - discussed recommendation for delivery by 42 weeks. Patient agreeable to scheduling IOL at this time. Scheduled 01/24 at [facility]. Instructions given. - labor precautions reviewed. Instructed how to perform kick counts and to call with less than 10 kicks in 2 hours. RTO in 1 week Cheyenne Dooley PA-C 01/16/2024 * Florinda Guzmán CMA - 01/16/2024 11:02 AM EDT 39w4d Requesting cervical check. Possible fluid loss Contractions starting 2 nights ago, not time able. documented in this encounter Plan of Treatment Upcoming Encounters Date Type Department Care Team (Late st Contact Info) Description 01/23/2024 11:30 AM EDT Office Visit Gynecology/Obstetrics Elia Coffman [address] [place] [address] RonerWendy CRNP [address] [place] [address] Health Maintenance Due Date Last Done Comments Depression Monitoring 05/31/2023 05/31/2022 COVID-19 Vaccine (2022-2 4 season) 2024 Influenza Vaccine (FLU shot) (#1) 2024 04/06/2022, [...] Supervision of other normal , antepartum- Primary Short interval between pregnancies complicating , antepartum Supervision of other high-risk Anemia affecting in third trimester Depression complicating , antepartum Mental disorders of mother, antepartum History of delivery documented in this encounter Care Teams Office Bookkeeper Relationship Specialty Start Date End Date Nelson Moreno DO PCP - General Internal Medicine 07/22/20 documented as of this encounter
--- OUTSIDE RECORDS SUMMARY | 2024-01-18 06:43 | External Medical Summary | Summary of Care ---
Author Name Unknown Organization [facility] Address [address] [facility] [place] [address] Phone [phone] Care Team Providers Care Home Therapy Clinician Name Role Phone Nelson Moreno DO Primary Care Provider [phone] Reason for Visit * Reason Comments Return Visit Encounter Details Date Type Department Care Team (Late st Contact Info) Description 11/28/2023 1:45 PM EDT Office Visit Gynecology/Obstetric s Elia Coffman [address] [place] [address] Wendy Marquez CRNP [address] [facility] [place] [address] Supervision of other normal , antepartum*; Anemia affecting in third trimester; Depression complicating , antepartum; History of delivery Allergies Active Allergy Reactions Criticality Noted Date Comments Levonorgestrel-Ethinyl Estrad 03/22/2017 Moodiness, depression Omeprazole 03/05/2019 Nausea and vomiting documented as of this encounter (statuses as of 11/28/2023) Medications Medication Sig Dispensed Refills Start Date End Date Status Formula 28-0.8-235 MG Oral Capsule Take by mouth . Active Breast PumpIndications:[place] st feeding status of mother SHI 06/30/22, [...] as of this encounter (statuses as of 11/28/2023) Active Problems Problem Noted Date Diagnosed Date [...] as of this encounter (statuses as of 11/28/2023) Resolved Problems Problem Noted Date Diagnosed Date [...] as of this encounter (statuses as of 11/28/2023) Immunizations Name Administration Dates Next Due DTaP [...] money to get more. Never true 06/27/2023 [place] Depression Scale Answer Date Recorded [place] Depression Scale Total 14 06/27/2023 The thought of harming myself has occurred to me . Hardly ever 06/27/2023 Childcare Answer Date Recorded Do you feel [...] Sign Reading Time Taken Comments Blood Pressure 104/60 11/28/2023 1:45 PM EDT Pulse - - Temperature - - Respiratory Rate - - Oxygen Saturation - - Inhaled Oxygen Concentration - - Weight 61.7 kg (136 lb) 11/28/2023 1:45 PM EDT Height - - Body Mass Index 30.49 11/14/2023 11:54 AM EDT documented in this encounter Progress Notes * Wendy Marquez CRNP - 11/28/2023 1:48 PM EDT 32w4d Baby moving well. Denies leaking, bleeding, regular ctx. Provided w/labor instructions. Belly button pain - no hernia appreciated on exam. Discussed likely from diastasis - recommend belly band, PT. Taking iron. 2 week return DALI Polk * Laisha Nicholas LPN - 11/28/2023 1:43 PM EDT 32w4d Denies vaginal bleeding/rom + movement Labor instructions given today documented in this encounter Plan of Treatment Upcoming Encounters Date Type Department Care Team (Late st Contact Info) Description 12/12/2023 1:30 PM EDT Office Visit Gynecology/Obstetrics [facility] [address] [place] [address] BackerWendy CRNP [address] [place] [address] 01/11/2024 9:00 AM EDT Office Visit Cardiology, [facility] [address] [place] [address] Sandro Almaraz DO [address] [place] [address] Health Maintenance Due Date Last Done Comments COVID-19 Vaccine (2022-2 4 season) 2023 Depression Monitoring 05/31/2023 05/31/2022 Influenza Vaccine (FLU shot) (#1) 2024 04/06/2022, 02/03/2020, 02/14/2019, Additional history exists Gonorrhea / Chlamydia Screen 06/27/2024, 11/17/2021, 02/03/2020, Additional history exists Pap Smear 06/27/2026 06/27/2023 DTaP,Tdap,and Td Vaccines (1 0 - Td or Tdap) 11/13/2033 11/14/2023, 04/06/2022, [...] delivery documented in this encounter Care Teams Home Therapy Clinician Relationship Specialty Start Date End Date Nelson Moreno DO PCP - General Internal Medicine 07/22/20 documented as of this encounter
--- OUTSIDE RECORDS SUMMARY | 2024-01-18 06:43 | External Medical Summary | Summary of Care ---
Author Name Unknown Organization [facility] Address [address] [place] [address] Phone [phone] Care Team Providers Care Software Technical Lead Name Role Phone Nelson Moreno DO Primary Care Provider [phone] Reason for Visit * Reason Onset Date Comments Return Visit 12/19/2023 2 week, pr ovider call off Encounter Details Date Type Department Care Team (Late st Contact Info) Description 12/19/2023 Telephone Gynecology/Obstetics [place] [address] [place] [address] Karina Han PA-C [address] [place] [address] Return Visit (2 week, provider ca... Allergies Active Allergy Reactions Criticality Noted Date Comments Levonorgestrel-Ethinyl Estrad 03/22/2017 Moodiness, depression Omeprazole 03/05/2019 Nausea and vomiting documented as of this encounter (statuses as of 12/27/2023) Medications Medication Sig Dispensed Refills Start Date End Date Status Formula 28-0.8-235 MG Oral Capsule Take by mouth . Active Breast PumpIndications:[place] st feeding status of mother SHI 06/30/22, [...] as of this encounter (statuses as of 12/27/2023) Active Problems Problem Noted Date Diagnosed Date [...] as of this encounter (statuses as of 12/27/2023) Resolved Problems Problem Noted Date Diagnosed Date [...] as of this encounter (statuses as of 12/27/2023) Immunizations Name Administration Dates Next Due DTaP Dipth/Tet/Acell Pertussis (Infanrix), Peds 11/01/2006,10/30/2003,04/03/2002,02/14,2001 HIB PRP-OMP, 3 dose (Pedvax) 09/27/2002,02/15/20 02,2001 HPV Vaccine, 9-Valent 09/19/2017,03/22/2017 HPV Vaccine, Bivalent 09/18/2014 Hepatitis A, Ped/Adol., 18 y ear and below, 2-Dose 09/18/2014 Hepatitis B, 0-19 yrs 09/27/2002,02/14/2002, IPV - Polio Virus Vaccine (Inact) 2006,02/03/2003,02/14/2002,11/27 [...] money to get more. Never true 06/27/2023 [place] Depression Scale Answer Date Recorded [place] Depression Scale Total 9 11/28/2023 The thought [...] on file documented as of this encounter Miscellaneous Notes * Telephone Encounter - Diana Kolb RN - 12/20/2023 10:36 AM EDT Provider is unavailable d/t FMLA - no appts available in [place]. Pt is typically seen in [facility] - can you help with an appt? * Telephone Encounter - Savi Jacobo OSA - 12/19/2023 8:08 AM EDT Pt was contacted due to the provider call off. Please call pt to reschedule sooner than 01/01. Please advise. Thank you. documented in this encounter Plan of Treatment Upcoming Encounters Date Type Department Care Team (Late st Contact Info) Description 01/09/2024 1:30 PM EDT Office Visit Gynecology/Obstetrics [facility] [address] [place] [address] Jamila Goodman CRNP [address] [place] [address] 01/11/2024 9:00 AM EDT Office Visit Cardiology, [facility] [address] [place] [address] Sandro Almaraz DO [address] [place] [address] Health Maintenance Due Date Last Done Comments COVID-19 Vaccine (1 - 2022-2 4 season) 2023 Depression Monitoring 05/31/2023 05/31/2022 [...] Not on filedocumented as of this encounter Care Teams Software Technical Lead Relationship Specialty Start Date End Date Nelson Moreno DO PCP - General Internal Medicine 07/22/20 documented as of this encounter
--- OUTSIDE RECORDS SUMMARY | 2024-01-18 06:43 | External Medical Summary ---
Author Name Unknown Address Unknown Organization K01:[facility] [place] [facility] [place] [place] [address] Laboratory Report Ordering Provider Test Date Status CHAD BLEVINS 01/09/2024 13:48:22 Final Observation Date Value Abnormality Reference (Units ) Status Streptococcus agalactiae DNA [Presence] in Specimen by POONAM with probe detection 01/09/2024 13:48:22 Negative Negative Final No Group B Streptococcus det ected by culture-enhanced PCR (amplified probe). GBS GBSCT - [facility] 01/09/2024 13:48:22 0.0 Final GBS SPCCT - [facility] 01/09/2024 13:48:22 31.7 Final Performing Location [facility] [place] [address] [place] [address]
--- OUTSIDE RECORDS SUMMARY | 2024-01-18 06:43 | External Medical Summary | Summary of Care ---
Author Name Unknown Organization [facility] Address [address] [address] Phone [phone] Care Team Providers Care Supervisor Electric Motor Testing Name Role Phone Nelson Moreno DO Primary Care Provider Reason for Visit * Reason Comments Return Visit Encounter Details Date Type Department Care Team (Late st Contact Info) Description 10/31/2023 1:45 PM EDT Office Visit Gynecology/Obstetric s Elia Coffman [address] [place] [address] Wendy Marquez CRNP [address] [facility] [place] [address] Supervision of other normal , antepartum*; Depression complicating , antepartum; History of delivery Allergies Active Allergy Reactions Criticality Noted Date Comments Levonorgestrel-Ethinyl Estrad 03/22/2017 Moodiness, depression Omeprazole 03/05/2019 Nausea and vomiting documented as of this encounter (statuses as of 10/31/2023) Medications Medication Sig Dispensed Refills Start Date End Date Status Formula 28-0.8-235 MG Oral Capsule Take by mouth . Active Breast PumpIndications:[place] st feeding status of mother SHI 06/30/22, Z39.1 1 Each 04/06/2022 Active Citalopram Hydrobromide 10 MG Oral Tablet (CeleXA) Take 1 Tablet by mouth in the morning. 30 Tablet 5 03/20/2023 Active Additional Information Patient not taking.Reported on 06/21/2023 documented as of this encounter (statuses as of 10/31/2023) Active Problems Problem Noted Date Diagnosed Date Supervision of other normal , antepartu m 06/27/2023 Depression complicating , antepartum Overview: D/c celexa with knowledge of . History of delivery 06/27/2023 Overview: PPROM at 36w3d. Discussed/declined vaginal progesterone Medical marijuana use 07/26/2021 Overview: Pt st in september 2020 PTSD (post-traumatic stress disorder) 08/25/2020 JONAS (generalized anxiety disorder) 08/25/2020 Severe episode of recurrent major depressive disorder, without psychotic features 08/25/2020 Lactose intolerance 11/17/2017 Estimated Date of Delivery Comme nts Yes 01/19/2024 Based on last me nstrual period of 04/14/2023 documented as of this encounter (statuses as of 10/31/2023) Resolved Problems Problem Noted Date Diagnosed Date [...] Moderate DILEEP of 30.0-34.9 cm o Severe DILEPE of greater than or equal to 35 cm We discussed potential etiologies and complications associated with polyhydramnios. Mild polyhydramnios often resolves spontaneously without negative effects on the . RECOMMENDATIONS: In non-diabetic patients, re-screen for GDM if not done within the previous 4 weeks. Perform MFM (Maternal- Medicine) ultrasound in 4 weeks for assessment of growth and fluid. Recommend delivery at 39 weeks. Antepartum anemia complicating 04/08/2022 07/25/2022 Overview: hgb 10.7 at 28 wks, start vitron C BID , normal first 12/14/202107/13 Depression complicating , antepartum 12/15/19 22 07/25/2022 Current moderate episode of major depressive disorder without prior episode 03/30/2020 documented as of this encounter (statuses as of 10/31/2023) Immunizations Name Administration Dates Next Due DTaP Dipth/Tet/Acell Pertussis (Infanrix), Peds 11/01/2006,10/30/2003,04/03/2002,02/14,2001 HIB PRP-OMP, 3 dose (Pedvax) 09/27/2002,02/15/20 02,2001 HPV Vaccine, 9-Valent 09/19/2017,03/22/2017 HPV Vaccine, Bivalent 09/18/2014 Hep A - Hepatitis A (ped/ado le, 1-18 Yrs) 09/18/2014 Hepatitis B, 0-19 yrs 09/27/2002,02/14/2002,11/12 IPV [...] TDAP, Age 7 and older, IM (Adacel) 09/18/2014 Varicella Vaccine (Chicken Pox) 12/01/2006,09/27 documented as [...] money to get more. Never true 06/27/2023 [place] Depression Scale Answer Date Recorded [place] Depression Scale Total 14 06/27/2023 The thought [...] Sign Reading Time Taken Comments Blood Pressure 102/70 10/31/2023 1:46 PM EDT Pulse - - Temperature - - Respiratory Rate - - Oxygen Saturation - - Inhaled Oxygen Concentration - - Weight 59.1 kg (130 lb 6.4 oz) 10/31/2023 1:46 P M EDT Height - - Body Mass Index 29.24 06/27/2023 1:31 PM EST documented in this encounter Progress Notes * Wendy Marquez CRNP - 10/31/2023 1:51 PM EDT 28w4d Labs today. Baby is active. Denies leaking, bleeding, ctx. Living in [place], [place]. She was referred to cardiology for SOB/chest pressure but did not show to that appt due to transportation and childcare problems. States she went to the ER in [place] for these symptoms, but left without being examined as there was a 4 hr wait. Sharp pains have subsided. Still with steady, daily pressure. Does not feel it is anxiety related, mood has been good. On exam today she is alert, in no acute distress, with normal work of breathing and physical movement. Skin warm, pink, dry. She is agreeable to rescheduling her EKG and cardiology appts, and to seek immediate medical attention for SOB, pain, worsening pressure. Wants to defer Tdap to next visit. Reviewed [facility] and when to call. 2 week return DALI Polk * Florinda Guzmán MED ASSIST - 10/31/2023 1:46 PM EDT 28w4d Denies vaginal bleeding/rom + movements ?TDAP next visit Shortness of breath/chest pains Tightness around heart documented in this encounter Plan of Treatment Upcoming Encounters Date Type Department Care Team (Late st Contact Info) Description 11/14/2023 11:30 AM EDT Office Visit Gynecology/Obstetrics [facility] [address] [place] [address] Wendy Marquez CRNP [address] [place] [address] 01/11/2024 9:00 AM EDT Office Visit Cardiology, [facility] [address] [place] [address] Sandro Almaraz DO [address] [place] [address] Health Maintenance Due Date Last Done Comments COVID-19 Vaccine (2022-2 4 season) 2023 Depression Monitoring 05/31/2023 05/31/2022 Influenza Vaccine (FLU shot) (Season Ended) 2024 04/06/2022, 02/03/2020, 02/14/2019, Additional history exists Gonorrhea / Chlamydia Screen 06/27/2024, 11/17/2021, 02/03/2020, Additional history exists Pap Smear 06/27/2026 06/27/2023 DTaP,Tdap,and Td Vaccines (9 - Td or Tdap) 04/06/2032 04/06/2022, 08/13/2020, 09/18/2014, Additional history exists Hepatitis B Completed 09/27/2002, 07/2001, 2001 Pneumococcal Vaccine: Pediat rics (0 to 5 Years) and At-Risk Patients (6 to 64 Years) Completed 09/27/2002, 04/03/2002, 02/14/2002, Additional history exists GARDASIL-HPV IMMUNIZATION SERIES Completed 09/19/2017, 03/22/2017, 09/18/2014 MENINGOCOCCAL (MENACTRA/MENVEO) Completed , 09/28/2014 documented as of this encounter Medical Devices Not on filedocumented as of this encounter Visit Diagnoses Diagnosis Supervision of other normal , antepartum- Primary Depression complicating , antepartum Mental disorders of mother, antepartum History of delivery documented in this encounter Care Teams Supervisor Electric Motor Testing Relationship Specialty Start Date End Date Nelson Moreno DO PCP - General Internal Medicine 07/22/20 documented as of this encounter
--- OUTSIDE RECORDS SUMMARY | 2024-01-18 06:43 | External Medical Summary | Summary of Care ---
Author Name Unknown Organization [facility] Address [address] [place] [address] Phone [phone] Care Team Providers Care Communication Technician Name Role Phone Nelson Moreno DO Primary Care Provider [phone] Reason for Visit * Reason Comments Outpatient Testing Encounter Details Date Type Department Care Team (Late st Contact Info) Description 10/31/2023 2:00 PM EDT [facility] [address] [facility] [place] [phone] [facility] [facility] [address] [facility] [address] Supervision of other normal , antepartum Allergies Active Allergy Reactions Criticality Noted Date Comments Levonorgestrel-Ethinyl Estrad 03/22/2017 Moodiness, depression Omeprazole 03/05/2019 Nausea and vomiting documented as of this encounter (statuses as of 10/31/2023) Medications Medication Sig Dispensed Refills Start Date End Date Status Formula 28-0.8-235 MG Oral Capsule Take by mouth . Active Breast PumpIndications:[place] st feeding status of mother SHI 06/30/22, [...] major depressive disorder without prior episode 03/30/2020 1 documented as of this encounter (statuses as [...] money to get more. Never true 06/27/2023 [place] Depression Scale Answer Date Recorded [place] Depression Scale Total 14 06/27/2023 The thought [...] on file documented as of this encounter Plan of Treatment Upcoming Encounters Date Type Department Care Team (Late st Contact Info) Description 11/14/2023 11:30 AM EDT Office Visit Gynecology/Obstetrics [facility] [address] [place] [address] Wendy Marquez CRNP [address] [place] [address] 01/11/2024 9:00 AM EDT Office Visit Cardiology, [facility] [address] [place] [address] Sandro Almaraz DO [address] [place] [address] Pending Results Name Type Priority Associated Diagnoses Date /Time 50-G GESTATIONAL GLUCOSE, 1 HOUR Lab Routine Supervision of other normal , antepartum 10/31/2023 2:54 PM EDT SYPHILIS ANTIBODY SCREEN WITH REFLEX TO RPR Lab Routine Supervision of other normal , antepartum 10/31/2023 2:54 PM EDT CBC WITH WBC DIFFERENTIAL AND ANEMIA REFLEX WORKUP Lab Routine Supervision of other normal , antepartum 10/31/2023 2:54 PM EDT SYPHILIS ANTIBODY SCREEN Lab Routine Supervision of other normal , antepartum 10/31/2023 2:54 PM EDT ANEMIA CBC Lab Routine Supervision of other normal , antepartum 10/31/2023 2:54 PM EDT DIFFERENTIAL, AUTOMATED Lab Routine Supervision of other normal , antepartum 10/31/2023 2:54 PM EDT ANEMIA REFLEX CHEMISTRY HOLD Lab Routine Supervision of other normal , antepartum 10/31/2023 2:54 PM EDT Health Maintenance Due Date Last Done Comments [...] Completed 09/19/2017, 03/22/2017, 09/18/2014 MENINGOCOCCAL (MENACTRA/MENVEO) Completed 8, 09/28/2014 documented as of this encounter Medical Devices Not on filedocumented as of this encounter Visit Diagnoses Diagnosis Supervision of other normal , antepartum documented in this encounter Care Teams Communication Technician Relationship Specialty Start Date End Date Nelson Moreno DO PCP - General Internal Medicine 07/22/20 documented as of this encounter
--- OUTSIDE RECORDS SUMMARY | 2024-01-18 06:43 | External Medical Summary | Summary of Care ---
Author Name Unknown Organization [facility] Address [address] [facility] [address] Phone [phone] Care Team Providers Care Sugar Mixer Name Role Phone Nelson Moreno DO Primary Care Provider [phone] Encounter Details Date Type Department Care Team (Late st Contact Info) Description 10/31/2023 Telephone Gynecology/Obstetrics [facility] [address] [place] [address] Wendy Marquez CRNP [address] [place] [address] Allergies Active Allergy Reactions Criticality Noted Date Comments Levonorgestrel-Ethinyl Estrad 03/22/2017 Moodiness, depression Omeprazole 03/05/2019 Nausea and vomiting documented as of this encounter (statuses as of 11/03/2023) Medications Medication Sig Dispensed Refills Start Date End Date Status Formula 28-0.8-235 MG Oral Capsule Take by mouth . Active Breast PumpIndications:[place] st feeding status of mother SHI 06/30/22, Z39.1 1 Each 04/06/2022 Active Citalopram Hydrobromide 10 MG Oral Tablet (CeleXA) Take 1 Tablet by mouth in the morning. 30 Tablet 5 03/20/2023 Active Additional Information Patient not taking.Reported on 06/21/2023 documented as of this encounter (statuses as of 11/03/2023) Active Problems Problem Noted Date Diagnosed Date [...] as of this encounter (statuses as of 11/03/2023) Resolved Problems Problem Noted Date Diagnosed Date [...] as of this encounter (statuses as of 11/03/2023) Immunizations Name Administration Dates Next Due DTaP [...] money to get more. Never true 06/27/2023 [place] Depression Scale Answer Date Recorded [place] Depression Scale Total 14 06/27/2023 The thought [...] encounter Miscellaneous Notes * Telephone Encounter - Arben Dove OSA - 10/31/2023 2:06 PM EDT Called patient, she is setup with Dr. Almaraz on: Dec Arrive by 8:45 AM Appt at 9:00 AM (30 min) Sandro Almaraz DO * Telephone Encounter - Brandie Chacon OSA - 10/31/2023 2:02 PM EDT Please contact patient to reschedule cardio appt. I was unable to find any availability soon. documented in this encounter Plan of Treatment Upcoming Encounters Date Type Department Care Team (Late st Contact Info) Description 11/14/2023 11:30 AM EDT Office Visit Gynecology/Obstetrics [facility] [address] [place] [address] Wendy Marquez CRNP [address] [place] [address] 01/11/2024 9:00 AM EDT Office Visit Cardiology, [facility] [address] [place] [address] Sandro Almaraz DO [address] [place] [address] Health Maintenance Due Date Last Done Comments [...] filedocumented as of this encounter Care Teams Sugar Mixer Relationship Specialty Start Date End Date Nelson Moreno DO PCP - General Internal Medicine 07/22/20 documented as of this encounter
--- OUTSIDE RECORDS SUMMARY | 2024-01-18 06:43 | External Medical Summary | Summary of Care ---
Author Name Unknown Organization [facility] Address [address] [facility] [address] Phone [phone] Care Team Providers Care Materials Engineer Name Role Phone Nelson Moreno DO Primary Care Provider [phone] Reason for Visit * Reason Comments Return Visit Encounter Details Date Type Department Care Team (Late st Contact Info) Description 01/09/2024 1:30 PM EDT Office Visit Gynecology/Obstetric s [facility] [place] [address] Jamila Goodman CRNP [address] [place] [address] Supervision of other normal , antepartum*; Anemia [...] Capsule Take by mouth . Active Breast PumpIndications:[place] st feeding status of mother SHI 06/30/22, [...] money to get more. Never true 06/27/2023 [place] Depression Scale Answer Date Recorded [place] Depression Scale Total 9 11/28/2023 The thought [...] any contractions, denies bleeding, leaking fluid. 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 Hoping to deliver in [place], but only being seen by this office. Records printed for pt to take if she does end up going in to labor while in [place]. GBS done today. Health Informatics Advisor Documentation Provider requested fish inspector. Name of fish inspector: Apoorva Borrero CBC today. DALI Murray documented [...] delivery documented in this encounter Care Teams Materials Engineer Relationship Specialty Start Date End Date Nelson Moreno DO PCP - General Internal Medicine 07/22/20 documented as of this encounter
--- OUTSIDE RECORDS SUMMARY | 2024-01-18 06:43 | External Medical Summary | Summary of Care ---
Author Name Unknown Organization [facility] Address [address] [facility] [address] Phone [phone] Care Team Providers Care Receivable Clerk Name Role Phone Nelson Moreno DO Primary Care Provider [phone] Reason for Visit * Reason Comments Return Visit Encounter Details Date Type Department Care Team (Late st Contact Info) Description 11/14/2023 11:30 AM EDT Office Visit Gynecology/Obstetric s Elia Coffman [address] [facility] [place] [address] Wendy Marquez CRNP 132 [facility] [place] [address] Supervision of other normal , antepartum*; Depression complicating , antepartum; History of delivery; Anemia affecting in third trimester; Need for prophylactic vaccination with combined cfzhrfytgt-jyqnyui-sa rtussis (DTP) vaccine Allergies Active Allergy Reactions Criticality Noted Date Comments Levonorgestrel-Ethinyl Estrad 03/22/2017 Moodiness, depression Omeprazole 03/05/2019 Nausea and vomiting documented as of this encounter (statuses as of 11/14/2023) Medications Medication Sig Dispensed Refills Start Date [...] as of this encounter (statuses as of 11/14/2023) Active Problems Problem Noted Date Diagnosed Date [...] as of this encounter (statuses as of 11/14/2023) Resolved Problems Problem Noted Date Diagnosed Date [...] as of this encounter (statuses as of 11/14/2023) Immunizations Name Administration Dates Next Due DTaP [...] money to get more. Never true 06/27/2023 [place] Depression Scale Answer Date Recorded [place] Depression Scale Total 14 06/27/2023 The thought [...] Sign Reading Time Taken Comments Blood Pressure 100/60 11/14/2023 11:54 AM EDT Pulse - - Temperature - - Respiratory Rate - - Oxygen Saturation - - Inhaled Oxygen Concentration - - Weight 60.8 kg (134 lb) 11/14/2023 11:54 AM EDT Height 142.2 cm (4' 8") 11/14/2023 11:54 AM EDT Body Mass Index 30.04 11/14/2023 11:54 AM EDT documented in this encounter Progress Notes * Wendy Marquez CRNP - 11/14/2023 12:05 PM EDT 30w4d No complaints, good movement. Some BH ctx, nothing regular. No leaking/bleeding. Was unaware of iron recommendations, new Rx sent. Accepts Tdap today. Travels between here and [place] - hoping to be [place] at time of delivery. [place], and [place] a local hospital in case care is needed. 2 week return DALI Polk * Yasmeen Camilo LPN - 11/14/2023 11:54 AM EDT 30w4d documented in this encounter Nursing Notes * Yasmeen Camilo LPN - 11/14/2023 12:09 PM EDT Patient here for tdap injection. Patient doing well no complaints. Injection given IM as ordered. Patient tolerated well. Patient to follow up as directed. Patient instructed to call if any complications. Patient verbalized understanding of instructions given and her follow up appt for 2 weeks Injection site: Right Deltoid Medication Source: Dispensed stock medication' documented in this encounter Plan of Treatment Upcoming Encounters Date Type Department Care Team (Late st Contact Info) Description 11/28/2023 1:45 PM EDT Office Visit Gynecology/Obstetrics [facility] [address] [place] [address] Wendy Marquez CRNP [address] [place] [address] 01/11/2024 9:00 AM EDT Office Visit Cardiology, [facility] [address] [place] [address] Sandro Almaraz DO [address] [place] [address] Health Maintenance Due Date Last Done Comments COVID-19 Vaccine (2022-2 4 season) 2023 Depression Monitoring 05/31/2023 05/31/2022 Influenza Vaccine (FLU shot) (#1) 2024 04/06/2022, 02/03/2020, 02/14/2019, Additional history exists Gonorrhea / Chlamydia Screen 06/27/2024, 11/17/2021, 02/03/2020, Additional history exists Pap Smear 06/27/2026 06/27/2023 DTaP,Tdap,and Td Vaccines (1 0 - Td or Tdap) 11/13/2033 11/14/2023, 04/06/2022, 08/13/2020, Additional history exists Hepatitis B Completed 09/27/2002, [...] disorders of mother, antepartum History of delivery Anemia affecting in third trimester Need for prophylactic vaccination with combined wwxyxhvcph-yxhqjfy-ftarcutbv (DTP) vaccine documented in this encounter Care Teams Receivable Clerk Relationship Specialty Start Date End Date Nelson Moreno DO PCP - General Internal Medicine 07/22/20 documented as of this encounter
--- OUTSIDE RECORDS SUMMARY | 2024-01-18 06:44 | External Medical Summary | Summary of Care ---
Author Name Unknown Organization [facility] Address [address] [facility] [place] [address] Phone [phone] Care Team Providers Care Agricultural Specialist Name Role Phone Nelson Moreno DO Primary Care Provider [phone] Reason for Visit * Reason Onset Date Comments Advice 07/31/2023 Encounter Details Date Type Department Care Team (Late st Contact Info) Description 07/31/2023 Telephone Gynecology/Obstetrics [facility] [address] [facility] [place] [address] Gw, Nurse Golf Cart Attendant [facility] [address] [facility] [place] [address] Advice Allergies Active Allergy Reactions Criticality Noted Date Comments Levonorgestrel-Ethinyl Estrad 03/22/2017 Moodiness, depression Omeprazole 03/05/2019 Nausea and vomiting documented as of this encounter (statuses as of 07/31/2023) Medications Medication Sig Dispensed Refills Start Date End Date Status Formula 28-0.8-235 MG Oral Capsule Take by mouth . 0 Active Breast PumpIndications:Yany st feeding status of mother SHI 06/30/22, Z39.1 1 Each 0 04/06/2022 Active Docusate Sodium 100 MG Oral Capsule (Colace) 0 06/10/2022 Active Norethindrone 0.35 MG Oral TabletIndications:En counter for initial prescription of contraceptive pills TAKE 1 TABLET BY MOUTH EVERY MORNING. START MONDAY FOLLOWING NEXT MENSTRAUL PERIOD. 28 Tablet 4 03/19/2023 Active Additional Information Patient not taking.Reported on 06/21/2023 Citalopram Hydrobromide 10 MG Oral Tablet (CeleXA) Take 1 Tablet by mouth in the morning. 30 Tablet 5 03/20/2023 Active Additional Information Patient not taking.Reported on 06/21/2023 documented as of this encounter (statuses as of 07/31/2023) Active Problems Problem Noted Date Diagnosed Date [...] as of this encounter (statuses as of 07/31/2023) Resolved Problems Problem Noted Date Diagnosed Date [...] as of this encounter (statuses as of 07/31/2023) Immunizations Name Administration Dates Next Due DTaP [...] 03/17/2009,02/20/2008,02/20/2007,03/13,02/18/2005 TDAP (age 10 and older)(Boostrix) 04/06/2022,05/2020 TDAP (age 11 and older)(Adacel) 09/18/2014 Varicella Vaccine (Chicken Pox) 12/01/2006,09/27 documented [...] money to get more. Never true 06/27/2023 [place] Depression Scale Answer Date Recorded [place] Depression Scale Total 14 06/27/2023 The thought of harming myself has occurred to me . Hardly ever 06/27/2023 Estimated Date of Delivery Comme nts [...] encounter Miscellaneous Notes * Telephone Encounter - Dee Dong RN - 07/31/2023 3:15 PM EDT Patient called and made aware we cannot tell her gender of baby tomorrow. She will need to have QNATAL testing done or wait until anatomy US ( as long as baby positioning cooperates) . Patent will make provider aware at visit tomorrow if she would like QNATAL testing. * Telephone Encounter - Mary Gambino OSA - 07/31/2023 2:24 PM EDT Patient calling asking if she would be able to get the gender of the baby at her visit tomorrow with Wendy. Thank you. documented in this encounter Plan of Treatment Upcoming Encounters Date Type Department Care Team (Late st Contact Info) Description 08/01/2023 1:30 PM EDT Office Visit Gynecology/Obstetrics Naranjonav Coffman [address] [place] [address] [place], DALI Norris [address] [place] [address] Health Maintenance Due Date Last Done Comments Yearly Wellness Visit 02/02/2021 02/03/2020, 016 Depression, Most Recent Scor e >= 10 (will fire each visit until score < 10) 06/01/2022 05/31/2022 COVID-19 Vaccine ( - 2022-2 4 season) 2023 Influenza Vaccine (FLU shot) (#1) 2023 04/06/2022, 02/03/2020, 02/14/2019, Additional history exists Gonorrhea [...] filedocumented as of this encounter Care Teams Agricultural Specialist Relationship Specialty Start Date End Date Nelson Moreno DO [address] [place] [address] PCP - General Internal Medicine 07/22/20 documented as of this encounter
--- OUTSIDE RECORDS SUMMARY | 2024-01-18 06:44 | External Medical Summary ---
Author Name Unknown Address Unknown Organization [id number]:LABORATORY [facility] [place] - [address] [place] [address] Laboratory Report Ordering Provider Test Date Status MINH CABRERA 10/31/2023 14:54:03 Final Observation Date Value Abnormality Reference (Units ) Status Ferritin 10/31/2023 14:54:03 11 Below low normal 13- 150 (ng/mL) Final Performing Location LABORATORY [facility] - [address] [place] [address]
--- OUTSIDE RECORDS SUMMARY | 2024-01-18 06:44 | External Medical Summary | Summary of Care ---
Author Name Unknown Organization [facility] Address [address] [facility] [address] Phone [phone] Care Team Providers Care Dietary Aid Name Role Phone Nelson Moreno DO Primary Care Provider [phone] Reason for Visit * Reason Comments Return Visit Encounter Details Date Type Department Care Team (Late st Contact Info) Description 09/05/2023 1:30 PM EDT Office Visit Gynecology/Obstetric s Elia Coffman [address] [place] [address] Wendy Marquez CRNP [address] [place] [address] Supervision of other normal , antepartum*; Depression complicating , antepartum; History of delivery Allergies Active Allergy Reactions Criticality Noted Date Comments Levonorgestrel-Ethinyl Estrad 03/22/2017 Moodiness, depression Omeprazole 03/05/2019 Nausea and vomiting documented as of this encounter (statuses as of 09/05/2023) Medications Medication Sig Dispensed Refills Start Date End Date Status Formula 28-0.8-235 MG Oral Capsule Take by mouth . 0 Active Breast PumpIndications:Yany st feeding status of mother SHI 06/30/22, Z39.1 1 Each 0 04/06/2022 Active Citalopram Hydrobromide 10 MG Oral Tablet (CeleXA) Take 1 Tablet by mouth in the morning. 30 Tablet 5 03/20/2023 Active Additional Information Patient not taking.Reported on 06/21/2023 documented as of this encounter (statuses as of 09/05/2023) Active Problems Problem Noted Date Diagnosed Date [...] as of this encounter (statuses as of 09/05/2023) Resolved Problems Problem Noted Date Diagnosed Date [...] as of this encounter (statuses as of 09/05/2023) Immunizations Name Administration Dates Next Due DTaP [...] 13 Valent (Prevnar) 09/27/2002,04/03/2002,02/14/2002,11/27 Seasonal Influenza Intranasal 03/03/2004,2 003,07/09/2002 Seasonal Influenza, PF, 6 M & [...] money to get more. Never true 06/27/2023 [place] Depression Scale Answer Date Recorded [place] Depression Scale Total 14 06/27/2023 The thought [...] Sign Reading Time Taken Comments Blood Pressure 100/58 09/05/2023 1:26 PM EDT Pulse - - Temperature - - Respiratory Rate - - Oxygen Saturation - - Inhaled Oxygen Concentration - - Weight 51.3 kg (113 lb) 09/05/2023 1:26 PM EDT Height - - Body Mass Index 25.33 06/27/2023 1:31 PM EST documented in this encounter Progress Notes * Laisha Nicholas LPN - 09/05/2023 1:27 PM EDT 20w4d Denies vaginal bleeding/rom + movement Rt sided cramping Lt side lower back pain Anatomy scan today * Wendy Marquez CRNP - 09/05/2023 1:25 PM EDT 20w4d Anatomy scan today, report in process. +Cardiac activity. + movement. No bleeding. Notes R sided cramping, seems to be related to baby's position. Some sciatic pain, reviewed remedies. On exam - abdomen soft, non-tender. No CVA tenderness. Will check urine culture, recommend belly band. Reviewed quad screen/timing and NIPT. CPT codes provided for both, they will check insurance coverage. Feels mood has been stable - more emotionally but managing. 4 week return DALI Polk documented in this encounter Plan of Treatment Upcoming Encounters Date Type Department Care Team (Late st Contact Info) Description 10/03/2023 1:30 PM EDT [facility] [address] [place] [address] Wendy Marquez CRNP [address] [place] [address] Health Maintenance Due Date Last Done Comments Yearly Wellness Visit 02/02/2021 02/03/2020, 016 Depression, Most Recent Scor e >= 10 (will fire each visit until score < 10) 06/01/2022 05/31/2022 COVID-19 Vaccine (1 - 2022-2 4 season) 2023 Influenza Vaccine (FLU shot) (Season Ended) 2024 [...] delivery documented in this encounter Care Teams Dietary Aid Relationship Specialty Start Date End Date Nelson Moreno DO [address] [place] [address] PCP - General Internal Medicine 07/22/20 documented as of this encounter
--- OUTSIDE RECORDS SUMMARY | 2024-01-18 06:44 | External Medical Summary | Summary of Care ---
Author Name Unknown Organization [facility] Address [address] [facility] [address] Phone [phone] Care Team Providers Care Binding Stitcher Name Role Phone Nelson Moreno DO Primary Care Provider [phone] Reason for Visit * Reason Comments Outpatient Testing Encounter Details Date Type Department Care Team (Late st Contact Info) Description 08/01/2023 3:30 PM EDT Laboratory [facility], [facility] [id number] [facility] [address] [place] [address] Arrived Allergies Active Allergy Reactions Criticality Noted Date Comments Levonorgestrel-Ethinyl Estrad 03/22/2017 Moodiness, depression Omeprazole 03/05/2019 Nausea and vomiting documented as of this encounter (statuses as of 08/01/2023) Medications Medication Sig Dispensed Refills Start Date [...] as of this encounter (statuses as of 08/01/2023) Active Problems Problem Noted Date Diagnosed Date [...] as of this encounter (statuses as of 08/01/2023) Resolved Problems Problem Noted Date Diagnosed Date [...] as of this encounter (statuses as of 08/01/2023) Immunizations Name Administration Dates Next Due DTaP [...] money to get more. Never true 06/27/2023 [place] Depression Scale Answer Date Recorded [place] Depression Scale Total 14 06/27/2023 The thought [...] Team (Late st Contact Info) Description 09/05/2023 11:45 AM EDT Imaging Radiology [facility] [address] [place] [address] 09/05/2023 1:30 PM EDT Office Visit Gynecology/Obstetrics [facility] [address] [place] [address] Wendy Marquez CRNP [address] [place] [address] Health Maintenance Due Date Last Done Comments [...] filedocumented as of this encounter Care Teams Binding Stitcher Relationship Specialty Start Date End Date Nelson Moreno DO [address] [place] [address] PCP - General Internal Medicine 07/22/20 documented as of this encounter
--- OUTSIDE RECORDS SUMMARY | 2024-01-18 06:44 | External Medical Summary ---
Author Name Unknown Address Unknown Organization [id number]:[place] [place] [address] [place] [address] Laboratory Report Ordering Provider Test Date Status MINH CABRERA 10/31/2023 14:54:03 Final Observation Date Value Abnormality Reference (Units ) Status Folic Acid 10/31/2023 14:54:03 15.8 >4.5 (ng/ mL) Final Performing Location [facility] [place] [address] [place] [address]
--- OUTSIDE RECORDS SUMMARY | 2024-01-18 06:44 | External Medical Summary | Summary of Care ---
Author Name Unknown Organization [facility] Address [address] [place] [address] Phone [phone] Care Team Providers Care Sales Development Executive Name Role Phone Nelson Moreno DO Primary Care Provider [phone] Reason for Referral * Evaluate & Treat - Unlimited Visits (Within 3 days (urgent)) - Pending Review Specialty Diagnoses / Procedures Referred By Brittani harrington Referred To Contact Cardiovascular Medicine / Cardiology Diagnoses Chest pain, unspecified type Wendy Marquez CRNP [address] [place] [address] Referral ID Status Reason Start Date Expiration Date Visits Requested Visits Authorized [id number] Pending Review Specialty Services Required 10/03/[phone] Question Answer Referral Priority Within 3 days (urgent) Where should this appointment be scheduled? [facility] To which of the following clinics are you referring your patient? General Cardiology Clinic Reason for Visit * Reason Comments Return Visit Encounter Details Date Type Department Care Team (Late st Contact Info) Description 10/03/2023 1:30 PM EDT Office Visit Gynecology/Obstetric s Elia Coffman [address] [place] [address] Wendy Marquez CRNP [address] [place] [address] Supervision of other normal , antepartum*; Depression complicating , antepartum; History of delivery; Chest pain, unspecified type Allergies Active Allergy Reactions Criticality Noted Date Comments Levonorgestrel-Ethinyl Estrad 03/22/2017 Moodiness, depression Omeprazole 03/05/2019 Nausea and vomiting documented as of this encounter (statuses as of 10/03/2023) Medications Medication Sig Dispensed Refills Start Date [...] as of this encounter (statuses as of 10/03/2023) Active Problems Problem Noted Date Diagnosed Date [...] as of this encounter (statuses as of 10/03/2023) Resolved Problems Problem Noted Date Diagnosed Date [...] as of this encounter (statuses as of 10/03/2023) Immunizations Name Administration Dates Next Due DTaP [...] money to get more. Never true 06/27/2023 [place] Depression Scale Answer Date Recorded [place] Depression Scale Total 14 06/27/2023 The thought [...] Sign Reading Time Taken Comments Blood Pressure 98/58 10/03/2023 1:28 PM EDT Pulse 98 10/03/2023 1:28 PM EDT Temperature - - Respiratory Rate - - Oxygen Saturation 98% 10/03/2023 1:28 PM EDT Inhaled Oxygen Concentration - - Weight 54.9 kg (121 lb) 10/03/2023 1:28 PM EDT Height - - Body Mass Index 27.13 06/27/2023 1:31 PM EST documented in this encounter Progress Notes * Laisha Nicholas LPN - 10/03/2023 1:30 PM EDT 24w4d Had episode of spotting yesterday- nothing since Heart racing- chest pain. SOB. Symptoms come and go- states same issues last . Decreased appetite Baby not as active today but states has not eaten yet today * Wendy Marquez CRNP - 10/03/2023 1:28 PM EDT 24w4d Spotting w/wiping yesterday, none since. No ctx. + movement. For the last 2 weeks, she has had the sensation of a racing heart and shortness of breath all day long, regardless of activity. This changes in intensity throughout the day. It can wake her up at night. May get random sharp, shooting chest pains. She experienced these symptoms late in her last : at that time, she saw cardiology and noted a normal resting 2D echo, no further cardiac testing advised (04/2022). Feels she is adequately hydrated, very little caffeine intake. On exam, she is in no acute distress, normal fluent speech. No depressive/anxious symptoms. Heart regular rate/rhythm. Lungs bilaterally clear throughout, normal respiratory rate and effort. Radial pulses bilaterally normal. Skin pink/warm/dry. Vital signs reviewed, WNL. Recommend EKG, cardiology referral. Needs to seek emergency care for worsening pain or difficulty breathing. Labs and return visit in 4 weeks. DALI Polk documented in this encounter Plan of Treatment Upcoming Encounters Date Type Department Care Team (Late st Contact Info) Description 10/31/2023 1:45 PM EDT Office Visit Gynecology/Obstetrics Elia Coffman [address] [place] [address] Wendy Marquez CRNP [address] [place] [address] Scheduled Orders Name Type Priority Associated Diagnoses Orde r Schedule 50-G GESTATIONAL GLUCOSE, 1 HOUR Lab Routine Supervision of other normal , antepartum Expected: 10/17/2023 (Approximate), Expires: 10/02/2024 SYPHILIS ANTIBODY SCREEN WITH REFLEX TO RPR Lab Routine Supervision of other normal , antepartum Expected: 10/17/2023 (Approximate), Expires: 10/02/2024 CBC WITH WBC DIFFERENTIAL AND ANEMIA REFLEX WORKUP Lab Routine Supervision of other normal , antepartum Expected: 10/17/2023 (Approximate), Expires: 10/02/2024 EKG EKG Routine Chest pain, unspecified type Expected: 10/03/2023 (Approximate), Expires: 11/02/2024 Scheduled Referrals Name Type Priority Associated Diagnoses Orde r Schedule CARDIOLOGY REFERRAL OP Referral Within 3 days (urgent) Chest pain, unspecified type Ordered: 10/03/2023 Health Maintenance Due Date Last Done Comments Depression, Most Recent Scor e >= 10 (will fire each visit until score < 10) 06/01/2022 05/31/2022 COVID-19 Vaccine (2022-2 4 season) 2023 Influenza Vaccine (FLU shot) [...] disorders of mother, antepartum History of delivery Chest pain, unspecified type documented in this encounter Care Teams Sales Development Executive Relationship Specialty Start Date End Date Nelson Moreno DO [address] [place] [address] PCP - General Internal Medicine 07/22/20 documented as of this encounter
--- OUTSIDE RECORDS SUMMARY | 2024-01-18 06:44 | External Medical Summary ---
Author Name Unknown Address Unknown Organization K01:LABORATORY [place] [address] [place] [address] Laboratory Report Ordering Provider Test Date Status MINH CABRERA 10/31/2023 14:54:03 Final Observation Date Value Abnormality Reference (Units ) Status Retic, % (auto) 10/31/2023 14:54:03 2.09 Above high normal 0.80-1.90 (%) Final Reticulocytes, Absolute 10/31/2023 14:54:03 71.7 31.3-100.1 (K/uL) Final Reticulocyte fraction, immature 10/31/2023 14:54:03 18.6 2.5-20.6 (%) Final Reticulocyte HGB 10/31/2023 14:54:03 34.1 29.7-37.4 (pg) Final Performing Location LABORATORY [facility] [place] - [facility] [place] [address]
--- OUTSIDE RECORDS SUMMARY | 2024-01-18 06:44 | External Medical Summary | Summary of Care ---
Author Name Unknown Organization [facility] Address [address] [facility] [place] [address] Phone [phone] Care Team Providers Care Conservation Coordinator Name Role Phone Nelson Moreno DO Primary Care Provider [phone] Reason for Visit * Reason Comments eRx-Medication Refill Encounter Details Date Type Department Care Team (Late st Contact Info) Description 08/07/2023 Refill Gynecology/Obstetrics Elia Coffman [address] [place] [address] Shaunna Campos PA-C [address] [place] [address] Encounter for initial prescription of contraceptive pills Allergies Active Allergy Reactions Criticality Noted Date Comments Levonorgestrel-Ethinyl Estrad 03/22/2017 Moodiness, depression Omeprazole 03/05/2019 Nausea and vomiting documented as of this encounter (statuses as of 08/08/2023) Medications Medication Sig Dispensed Refills Start Date [...] as of this encounter (statuses as of 08/08/2023) Active Problems Problem Noted Date Diagnosed Date [...] as of this encounter (statuses as of 08/08/2023) Resolved Problems Problem Noted Date Diagnosed Date [...] as of this encounter (statuses as of 08/08/2023) Immunizations Name Administration Dates Next Due DTaP [...] money to get more. Never true 06/27/2023 [place] Depression Scale Answer Date Recorded [place] Depression Scale Total 14 06/27/2023 The thought [...] encounter Miscellaneous Notes * Telephone Encounter - Negra Meadows LPN - 08/08/2023 9:19 AM EDTRefused Prescriptions: Disp Refills Dominga 0.35 MG Oral Tablet (Norethindrone) 28 Tab*0 Sig: TAKE 1 TABLET BY MOUTH EVERY MORNING. START MONDAY FOLLOWING NEXT MENSTRUAL PERIODRefused By: NEGRA MEADOWS LReason for Refusal: Not indicatedReason for Refusal Comment: patient is documented in this encounter Plan of Treatment Upcoming Encounters Date Type Department Care Team (Late st Contact Info) Description 09/05/2023 11:45 AM EDT Imaging Radiology [facility] [address] [place] [address] 09/05/2023 1:30 PM EDT Office Visit Gynecology/Obstetrics [facility] [address] [place] [address] BackerWendy CRNP [address] [place] [address] Health Maintenance Due Date Last Done Comments [...] as of this encounter Visit Diagnoses Diagnosis Encounter for initial prescription of contraceptive pills General counseling for prescription of oral contraceptives documented in this encounter Care Teams Conservation Coordinator Relationship Specialty Start Date End Date Nelson Moreno DO [address] [facility] [place] [place] [address] PCP - General Internal Medicine 07/22/20 documented as of this encounter
--- OUTSIDE RECORDS SUMMARY | 2024-01-18 06:44 | External Medical Summary ---
Author Name Unknown Address Unknown Organization K01:LABORATORY [facility] [place] - [facility] [address] [place] [address] Laboratory Report Ordering Provider Test Date Status MINH CABRERA 10/31/2023 14:54:03 Final Observation Date Value Abnormality Reference (Units ) Status Creatinine 10/31/2023 14:54:03 0.5 0.5-1.0 (mg/dL) Final Glomerular filtration rate/1.73 sq M.predicted [Volume Rate/Area] in Serum, Plasma or Blood by Creatinine-based formula (CKD-EPI) 10/31/2023 14:54:03 >90 >=60 (mL/min) Final eGFR is calculated based on the CKD-EPI 2020 equation Performing Location LABORATORY [facility] [place] - [facility] [address] [place] [address]
--- OUTSIDE RECORDS SUMMARY | 2024-01-18 06:44 | External Medical Summary ---
Author Name Unknown Address Unknown Organization K01:LABORATORY [facility] [place] - [address] [place] [id number] Laboratory Report Ordering Provider Test Date Status MINH CABRERA 09/06/2023 09:11:44 Final Observation Date Value Abnormality Reference (Units) Status Bacteria identified in Specimen by Culture 09/06/2023 09:11:44 No significant growth Final Test: Culture, Urine, Quanti tative
Specimen Source: Urine, Clean Catch
Specimen Type: Urine
Specimen Date: 09/06/2023 9:11 AM
Result Date: 09/07/2023 8:49 AM
Result Status: Final result
Resulting Lab: LABORATORY [facility]
[address]
[place] [address]

CULTURE

No significant growth

null Performing Location LABORATORY [facility] [place] - [address] [facility] [address]
--- OUTSIDE RECORDS SUMMARY | 2024-01-18 06:44 | External Medical Summary ---
Author Name Unknown Address Unknown Organization K01:LABORATORY [facility] [place] - [address] [place] [address] Laboratory Report Ordering Provider Test Date Status MINH CABRERA 10/31/2023 14:54:03 Final Observation Date Value Abnormality Reference (Units ) Status Treponema pallidum Ab [Presence] in Serum by Immunoassay 10/31/2023 14:54:03 Nonreactive Nonreactive Final No serologic evidence of syp hilis. No additional testing clinicially indicated at this time. Consider repeat testing in 2-4 weeks if acute or primary syphilis is suspected. Performing Location LABORATORY [facility] [place] - [address] [facility] [address]
--- OUTSIDE RECORDS SUMMARY | 2024-01-18 06:44 | External Medical Summary | Summary of Care ---
Author Name Unknown Organization [facility] Address [address] [facility] [place] [address] Phone [phone] Care Team Providers Care Progress Worker Name Role Phone Nelson Moreno DO Primary Care Provider [phone] Encounter Details Date Type Department Care Team (Late st Contact Info) Description 10/03/2023 Telephone Gynecology/Obstetrics Naranjonav Coffman [address] [place] [address] Wendy Marquez CRNP [address] [place] [address] Allergies Active Allergy Reactions Criticality Noted Date Comments Levonorgestrel-Ethinyl Estrad 03/22/2017 Moodiness, depression Omeprazole 03/05/2019 Nausea and vomiting documented as of this encounter (statuses as of 10/04/2023) Medications Medication Sig Dispensed Refills Start Date End Date Status Formula 28-0.8-235 MG Oral Capsule Take by mouth . Active Breast PumpIndications:[place] st feeding status of mother SHI 06/30/22, Z39.1 1 Each 04/06/2022 Active Citalopram Hydrobromide 10 MG Oral Tablet (CeleXA) Take 1 Tablet by mouth in the morning. 30 Tablet 5 03/20/2023 Active Additional Information Patient not taking.Reported on 06/21/2023 documented as of this encounter (statuses as of 10/04/2023) Active Problems Problem Noted Date Diagnosed Date Supervision of other normal , antepartu m 06/27/2023 Depression complicating , antepartum Overview: D/c kristiexa with knowledge of . History of delivery [...] as of this encounter (statuses as of 10/04/2023) Resolved Problems Problem Noted Date Diagnosed Date [...] normal first 12/14/202107/13 Depression complicating , antepartum 12/15/1903 0807/25/2022 Current moderate episode of major depressive disorder without prior episode 03/30/2020 documented as of this encounter (statuses as of 10/04/2023) Immunizations Name Administration Dates Next Due DTaP [...] money to get more. Never true 06/27/2023 [place] Depression Scale Answer Date Recorded [place] Depression Scale Total 14 06/27/2023 The thought [...] Telephone Encounter - Arben Dove OSA - 10/04/2023 10:06 AM EDT Called patient, LM and also sent a MyG message, and a letter on 10/04/23 * Telephone Encounter - Arben Dove OSA - 10/04/2023 7:56 AM EDT Patient is scheduled. Needs to be called. NEW CARDIOLOGY at 11:30 AM (60 min)Arrive by 11:15 AM Friday October 13, 2023 Appointment Provider:Sam Aguirre PA-C in CARDIOLOGY MYAH * Telephone Encounter - Brandie Chacon OSA - 10/03/2023 1:51 PM EDT Please call patient to schedule something as soon as possible. Patient needs cardio appt and EKG and would like to get them at the same time. Appears she has seen Sung in the past for cardio and his soonest was showing December. documented in this encounter Plan of Treatment Upcoming Encounters Date Type Department Care Team (Late st Contact Info) Description 10/13/2023 11:30 AM EDT Office Visit Cardiology, [facility] [address] [place] [address] Sam Aguirre PA-C [address] [place] [address] 10/31/2023 1:45 PM EDT Office Visit Gynecology/Obstetrics [facility] [address] [place] [address] Backer, DALI Norris [address] [place] [address] Health Maintenance Due Date Last Done Comments [...] filedocumented as of this encounter Care Teams Progress Worker Relationship Specialty Start Date End Date Nelson Moreno DO [address] [facility] [place] [address] PCP - General Internal Medicine 07/22/20 documented as of this encounter
--- OUTSIDE RECORDS SUMMARY | 2024-01-18 06:44 | External Medical Summary ---
Author Name Unknown Address Unknown Organization [id number][facility] [address] [place] [address] Laboratory Report Ordering Provider Test Date Status CHAD BLEVINS 08/01/2023 13:44:11 Final Observation Date Value Abnormality Reference (Units ) Status SYNC LEUKOCYTES IN BLOOD BY AUTOMATED COUNT 08/01/2023 13:44:11 8.19 4.00-10.80 (K/uL) Final Segs 08/01/2023 13:44:11 67.5 40.0-75.0 (%) Final Lymphs % 08/01/2023 13:44:11 25.6 18.0-42.0 (%) Final Monos 08/01/2023 13:44:11 6.6 1.0-11.0 (%) Final Eosinophils 08/01/2023 13:44:11 0.2 0.0-6.0 (%) Final Basos 08/01/2023 13:44:11 0.1 0.0-2.0 (%) Final Absolute Segs 08/01/2023 13:44:11 5.52 1.80-7.70 (K/uL) Final Lymphs, absolute 08/01/2023 13:44:11 2.10 1.00-4.80 (K/ul) Final Monos, Abs 08/01/2023 13:44:11 0.54 0.00-1.10 (K/uL) Final Eos, Abs 08/01/2023 13:44:11 0.02 0.00-0.70 (K/uL) Final Basos, Abs 08/01/2023 13:44:11 0.01 0.00-0.20 (K/uL) Final Performing Location [facility] 0 - [address] [place] [address]
--- OUTSIDE RECORDS SUMMARY | 2024-01-18 06:44 | External Medical Summary ---
Author Name Unknown Address Unknown Organization [id number]:[facility] [place] [address] - [address] [place] [address] Laboratory Report Ordering Provider Test Date Status CHAD BLEVINS 08/01/2023 13:44:11 Final Observation Date Value Abnormality Reference (Units ) Status WBC, Total 08/01/2023 13:44:11 8.19 4.00-10.8 0 (K/uL) Final RBC 08/01/2023 13:44:11 3.79 3.85-5.15 (M/uL) Final Hemoglobin 08/01/2023 13:44:11 12.3 12.0-15.3 (g/dL) Final Anemia reflex testing trigge rs on a HGB < 12.0 for Females and HGB < 13.0 for Males in accordance with the WHO Anemia Guidelines
Anemia reflex testing triggers on a HGB < 12.0 for Females and HGB < 13.0 for Males in accordance with the WHO Anemia Guidelines HCT 08/01/2023 13:44:11 35.4 Below low normal 36. 0-45.2 (%) Final MCV 08/01/2023 13:44:11 93.4 81.5-97.5 (fL) Final MCH 08/01/2023 13:44:11 32.5 27.0-34.0 (pg) Final MCHC 08/01/2023 13:44:11 34.7 32.0-36.0 (g/dL) Final RDW 08/01/2023 13:44:11 12.7 11.5-15.5 (%) Final Platelets 08/01/2023 13:44:11 182 140-400 (K /uL) Final MPV 08/01/2023 13:44:11 9.1 6.6-11.1 ( fL) Final Performing Location [facility]ORY [facility] 57-[address] - [address] [place] [address]
--- OUTSIDE RECORDS SUMMARY | 2024-01-18 06:44 | External Medical Summary ---
Author Name Unknown Address Unknown Organization [id number]:[facility] [place] [facility] [place] [address] Laboratory Report Ordering Provider Test Date Status RICKBACKER 10/31/2023 14:54:03 Final Observation Date Value Abnormality Reference (Units ) Status WBC, Total 10/31/2023 14:54:03 8.42 4.00-10.8 0 (K/uL) Final RBC 10/31/2023 14:54:03 3.52 3.85-5.15 (M/uL) Final Hemoglobin 10/31/2023 14:54:03 11.5 Below low normal 12 .0-15.3 (g/dL) Final Anemia reflex testing trigge rs on a HGB < 12.0 for Females and HGB < 13.0 for Males in accordance with the WHO Anemia Guidelines HCT 10/31/2023 14:54:03 35.0 Below low normal 36. 0-45.2 (%) Final MCV 10/31/2023 14:54:03 99.4 81.5-97.5 (fL) Final MCH 10/31/2023 14:54:03 32.7 27.0-34.0 (pg) Final MCHC 10/31/2023 14:54:03 32.9 32.0-36.0 (g/dL) Final RDW 10/31/2023 14:54:03 12.6 11.5-15.5 (%) Final Platelets 10/31/2023 14:54:03 166 140-400 (K /uL) Final MPV 10/31/2023 14:54:03 10.1 6.6-11.1 ( fL) Final Nucleated erythrocytes/100 leukocytes [Ratio] in Blood by Automated count 10/31/2023 14:54:03 0 <=0 (/100 WBCs) Final Performing Location [facility] [place] [address] [place] [address]
--- OUTSIDE RECORDS SUMMARY | 2024-01-18 06:44 | External Medical Summary ---
Author Name Unknown Address Unknown Organization [id number]:[facility] [place] [address] [place] [address] Laboratory Report Ordering Provider Test Date Status MINH CABRERA 10/31/2023 14:54:03 Final Observation Date Value Abnormality Reference (Units ) Status Iron 10/31/2023 14:54:03 72 33-151 (ug/dL) Final Iron-binding capacity 10/31/2023 14:54:03 489 Above high normal 250-425 (ug/dL) Final Transferrin Sat % 10/31/2023 14:54:03 15 15-55 (%) Final Performing Location [facility] [place] [address] [place] [address]
--- OUTSIDE RECORDS SUMMARY | 2024-01-18 06:44 | External Medical Summary ---
Author Name Unknown Address Unknown Organization K01:[facility]ORY [facility] [place] - [address] [facility] [place] [address] Laboratory Report Ordering Provider Test Date Status RICKBACKER 10/31/2023 14:54:03 Final Observation Date Value Abnormality Reference (Units ) Status SYNC LEUKOCYTES IN BLOOD BY AUTOMATED COUNT 10/31/2023 14:54:03 8.42 4.00-10.80 (K/uL) Final Segs 10/31/2023 14:54:03 72.9 40.0-75.0 (%) Final Lymphs % 10/31/2023 14:54:03 20.0 18.0-42.0 (%) Final Monos 10/31/2023 14:54:03 6.4 1.0-11.0 (%) Final Eosinophils 10/31/2023 14:54:03 0.2 0.0-6.0 (%) Final Basos 10/31/2023 14:54:03 0.1 0.0-2.0 (%) Final Immature Granulocyte, Percent 10/31/2023 14:54:03 0.4 0.0-2.0 (%) Final Absolute Segs 10/31/2023 14:54:03 6.14 1.80-7.70 (K/uL) Final Lymphs, absolute 10/31/2023 14:54:03 1.68 1.00-4.80 (K/ul) Final Monos, Abs 10/31/2023 14:54:03 0.54 0.00-1.10 (K/uL) Final Eos, Abs 10/31/2023 14:54:03 0.02 0.00-0.70 (K/uL) Final Basos, Abs 10/31/2023 14:54:03 0.01 0.00-0.20 (K/uL) Final Immature Granulocytes, Number 10/31/2023 14:54:03 0.03 0.00-0.20 (K/uL) Final Performing Location LABORATORY [facility] [place] - [facility] [address] [facility] [address]
--- OUTSIDE RECORDS SUMMARY | 2024-01-18 06:44 | External Medical Summary | Summary of Care ---
Author Name Unknown Organization [facility] Address [address] [facility] [address] Phone [phone] Care Team Providers Care Machine I Coremaker Name Role Phone Nelson Moreno DO Primary Care Provider [phone] Encounter Details Date Type Department Care Team (Late st Contact Info) Description 10/06/2023 Orders Only PATIENT PORTAL DO NOT DELETE THIS DEPT USED BY [place] [id number] Allergies Active Allergy Reactions Criticality Noted Date Comments Levonorgestrel-Ethinyl Estrad 03/22/2017 Moodiness, depression Omeprazole 03/05/2019 Nausea and vomiting documented as of this encounter (statuses as of 10/06/2023) Medications Medication Sig Dispensed Refills Start Date [...] as of this encounter (statuses as of 10/06/2023) Active Problems Problem Noted Date Diagnosed Date [...] as of this encounter (statuses as of 10/06/2023) Resolved Problems Problem Noted Date Diagnosed Date [...] as of this encounter (statuses as of 10/06/2023) Immunizations Name Administration Dates Next Due DTaP [...] money to get more. Never true 06/27/2023 [place] Depression Scale Answer Date Recorded [place] Depression Scale Total 14 06/27/2023 The thought [...] 10/13/2023 11:30 AM EDT Office Visit Cardiology, [facility] [address] [place] [address] Sam Aguirre PA-C [address] [place] [address] 10/31/2023 1:45 PM EDT Office Visit Gynecology/Obstetrics [facility] [address] [place] [address] BackerWendy CRNP [address] [place] [address] Health Maintenance Due Date Last Done Comments [...] filedocumented as of this encounter Care Teams Machine I Coremaker Relationship Specialty Start Date End Date Nelson Moreno DO [address] [facility] [place] [address] PCP - General Internal Medicine 07/22/20 documented as of this encounter
--- OUTSIDE RECORDS SUMMARY | 2024-01-18 06:44 | External Medical Summary ---
Author Name Unknown Address Unknown Organization K0G:[facility] [place] [address] - [address] [place] [address] Laboratory Report Ordering Provider Test Date Status RICKMINH 10/31/2023 14:54:03 Final Observation Date Value Abnormality Reference (Units ) Status Glucose [Moles/volume] in Serum or Plasma --1 hour post 50 g glucose PO 10/31/2023 14:54:03 126 70-129 (mg/dL) Final Performing Location LAB[facility]ORY [facility] [place] [address] - [address] [place] [address]
--- OUTSIDE RECORDS SUMMARY | 2024-01-18 06:44 | External Medical Summary | Summary of Care ---
Author Name Unknown Organization [facility] Address [address] [facility] [address] Phone [phone] Care Team Providers Care Utility Worker Film Processing Name Role Phone Nelson Moreno DO Primary Care Provider [phone] Reason for Visit * Reason Comments Return Visit Encounter Details Date Type Department Care Team (Late st Contact Info) Description 09/05/2023 1:30 PM EDT Office Visit Gynecology/Obstetric s Elia Coffman [address] [place] [address] Wendy Marquez CRNP [address] [place] [address] Supervision of other normal , antepartum*; Depression complicating , antepartum; History of delivery Allergies Active Allergy Reactions Criticality Noted Date Comments Levonorgestrel-Ethinyl Estrad 03/22/2017 Moodiness, depression Omeprazole 03/05/2019 Nausea and vomiting documented as of this encounter (statuses as of 09/06/2023) Medications Medication Sig Dispensed Refills Start Date [...] as of this encounter (statuses as of 09/06/2023) Active Problems Problem Noted Date Diagnosed Date [...] as of this encounter (statuses as of 09/06/2023) Resolved Problems Problem Noted Date Diagnosed Date [...] as of this encounter (statuses as of 09/06/2023) Immunizations Name Administration Dates Next Due DTaP [...] money to get more. Never true 06/27/2023 [place] Depression Scale Answer Date Recorded [place] Depression Scale Total 14 06/27/2023 The thought [...] 10/03/2023 1:30 PM EDT [facility] [address] [place] [address] Wendy Marquez CRNP [address] [place] [address] Health Maintenance Due Date Last Done Comments [...] delivery documented in this encounter Care Teams Utility Worker Film Processing Relationship Specialty Start Date End Date Nelson Moreno DO [address] [place] [address] PCP - General Internal Medicine 07/22/20 documented as of this encounter
--- OUTSIDE RECORDS SUMMARY | 2024-01-18 06:44 | External Medical Summary ---
Author Name Unknown Address Unknown Organization K01:LAB[facility]ATORY [facility] [place] - [address] [place] [address] Laboratory Report Ordering Provider Test Date Status MINH CABRERA 10/31/2023 14:54:03 Final Observation Date Value Abnormality Reference (Units ) Status TSH 10/31/2023 14:54:03 1.49 0.27-4.20 (uIU/mL) Final Performing Location LAB[facility]ATORY [facility] [place] - [address] [place] [address]
--- OUTSIDE RECORDS SUMMARY | 2024-01-18 06:44 | External Medical Summary | Summary of Care ---
Author Name Unknown Organization [facility] Address [address] [facility] [place] [address] Phone [phone] Care Team Providers Care Principal Quality Engineer Name Role Phone Nelson Moreno DO Primary Care Provider Reason for Visit * Reason Comments Return Visit Encounter Details Date Type Department Care Team (Late st Contact Info) Description 08/01/2023 1:30 PM EDT Office Visit Gynecology/Obstetric s Elia Coffman [address] [place] [address] Wendy Marquez CRNP [address] [place] [address] Supervision of other normal , antepartum*; Depression complicating , antepartum; History of delivery Allergies Active Allergy Reactions Criticality Noted Date Comments Levonorgestrel-Ethinyl Estrad 03/22/2017 Moodiness, depression Omeprazole 03/05/2019 Nausea and vomiting documented as of this encounter (statuses as of 08/01/2023) Medications Medication Sig Dispensed Refills Start Date End Date Status Formula 28-0.8-235 MG Oral Capsule Take by mouth . 0 Active Breast PumpIndications:[place] feeding status of mother SHI 06/30/22, Z39.1 1 Each 0 04/06/2022 Active Citalopram Hydrobromide 10 MG Oral Tablet (CeleXA) Take 1 Tablet by mouth in the morning. 30 Tablet 5 03/20/2023 Active Additional Information Patient not taking.Reported on 06/21/2023 Docusate Sodium 100 MG Oral Capsule (Colace) 0 06/10/2022 08/01/19 24 Discontinued Norethindrone 0.35 MG Oral TabletIndications: Encounter for initial prescription of contraceptive pills TAKE 1 TABLET BY MOUTH EVERY MORNING. START MONDAY FOLLOWING NEXT MENSTRAUL PERIOD. 28 Tablet 4 03/19/2023 08/01/19 24 Discontinued documented as of this encounter (statuses as [...] money to get more. Never true 06/27/2023 [place] Depression Scale Answer Date Recorded [place] Depression Scale Total 14 06/27/2023 The thought [...] Reading Time Taken Comments Blood Pressure 100/60 08/01/2023 1:21 PM EDT Pulse - - Temperature - - Respiratory Rate - - Oxygen Saturation - - Inhaled Oxygen Concentration - - Weight 47.6 kg (105 lb) 08/01/2023 1:21 PM EDT Height - - Body Mass Index 23.54 06/27/2023 1:31 PM EST documented in this encounter Progress Notes * Laisha Nicholas LPN - 08/01/2023 1:21 PM EDT 15w4d Had bleeding 2 days after intercourse she noticed when going to the bathroom- had cramping- no bleeding since then. Declines genetic testing * Wendy Marquez CRNP - 08/01/2023 1:18 PM EDT 15w4d Doing well, thinks she felt some flutters. Mild cramping and some light bleeding w/wiping after intercourse, none since. Declines genetic screening. CBC and urine culture today, not completed at [facility]. 4 week return, will schedule anatomy scan at 20 weeks. DALI Polk documented in this encounter Plan of Treatment Upcoming Encounters Date Type Department Care Team (Late st Contact Info) Description 08/01/2023 3:30 PM EDT Laboratory Laboratory, [facility] [address] [facility] [place] [phone] CoffmanJuju umana [facility] 132 [facility] [place] [address] Arrived 09/05/2023 11:45 AM EDT Imaging Radiology [facility] [address] [facility] [place] [address] 09/05/2023 1:30 PM EDT Office Visit Gynecology/Obstetrics [facility] [address] [place] [address] Wendy Marquez CRNP [address] [place] [address] Scheduled Orders Name Type Priority Associated Diagnoses Orde r Schedule US PREG SINGLE/1ST GEST, 14 WEEKS OR LATER Medical Imaging Routine Supervision of other normal , antepartum Expected: 09/05/2023 (Approximate), Expires: 08/31/2024 CULTURE, URINE, QUANTITATIVE Lab Routine Supervision of other normal , antepartum Ordered: 08/01/2023 Health Maintenance Due Date Last Done Comments [...] delivery documented in this encounter Care Teams Principal Quality Engineer Relationship Specialty Start Date End Date Nelson Moreno DO [address] [place] [address] PCP - General Internal Medicine 07/22/20 documented as of this encounter
--- OUTSIDE RECORDS SUMMARY | 2024-01-18 06:44 | External Medical Summary | Summary of Care ---
Author Name Unknown Organization [facility] Address [address] [facility] [address] Phone [phone] Care Team Providers Care Managed Care Manager Name Role Phone Nelson Moreno DO Primary Care Provider [phone] Reason for Visit * Reason Onset Date Comments abnormal pap 08/16/2023 Pap Close the Lo op Encounter Details Date Type Department Care Team (Late st Contact Info) Description 08/16/2023 Tele[facility] [address] [place] [address] Jamila Goodman CRNP [address] [place] [address] abnormal pap (Pap Close the Loop) Allergies Active Allergy Reactions Criticality Noted Date Comments Levonorgestrel-Ethinyl Estrad 03/22/2017 Moodiness, depression Omeprazole 03/05/2019 Nausea and vomiting documented as of this encounter (statuses as of 10/16/2023) Medications Medication Sig Dispensed Refills Start Date End Date Status Formula 28-0.8-235 MG Oral Capsule Take by mouth . Active Breast PumpIndications:[place] st feeding status of mother SHI 06/30/22, Z39.1 1 Each 04/06/2022 Active Citalopram Hydrobromide 10 MG Oral Tablet (CeleXA) Take 1 Tablet by mouth in the morning. 30 Tablet 5 03/20/2023 Active Additional Information Patient not taking.Reported on 06/21/2023 documented as of this encounter (statuses as of 10/16/2023) Active Problems Problem Noted Date Diagnosed Date [...] as of this encounter (statuses as of 10/16/2023) Resolved Problems Problem Noted Date Diagnosed Date [...] as of this encounter (statuses as of 10/16/2023) Immunizations Name Administration Dates Next Due DTaP [...] money to get more. Never true 06/27/2023 [place] Depression Scale Answer Date Recorded [place] Depression Scale Total 14 06/27/2023 The thought [...] encounter Miscellaneous Notes * Telephone Encounter - Jamila Goodman CRNP - 08/17/2023 8:48 AM EDT The recommendation is to repeat her pap in 3 years. You do not need to contact her to get this scheduled, as our schedules are not out 3 years in advance. * Telephone Encounter - Negra Garcia LPN - 08/16/2023 2:02 PM EDT The following patient hit our Close the Loop Pap report. Upon chart review, it was noted the patient was not notifed of the Pap result and/or follow up recommendation. If you or someone from your office could kindly review the PAP and notify the patient of the result and recommended follow up from the 06/27/23 PAP; once notified, our team can work on getting this patient scheduled appropriately. Thank you documented in this encounter Plan of Treatment Upcoming Encounters Date Type Department Care Team (Late st Contact Info) Description 10/31/2023 1:45 PM EDT Office Visit Gynecology/Obstetrics Elia Coffman [address] [place] [address] Backer, DALI Norris [address] [place] [address] Health Maintenance Due Date Last Done Comments [...] filedocumented as of this encounter Care Teams Managed Care Manager Relationship Specialty Start Date End Date Nelson Moreno DO [address] [facility] [place] [address] PCP - General Internal Medicine 07/22/20 documented as of this encounter
--- OUTSIDE RECORDS SUMMARY | 2024-01-18 06:44 | External Medical Summary ---
Author Name Unknown Address Unknown Organization K01:LABORATORY [facility] [place] - [address] [place] [address] Laboratory Report Ordering Provider Test Date Status MERE CABRERABRAXTON 10/31/2023 14:54:03 Final Observation Date Value Abnormality Reference (Units ) Status Vitamin B12 10/31/2023 14:54:03 759 540-1104 (pg/mL) Final Performing Location LAB[facility]ORY [facility] [place] - [address] [place] [address]
--- NOTE | 2024-01-18 08:16 | Labor Progress Brief Note ---
Date of Service January 18, 2024 Assessment & Plan Admission and Anticipated Discharge Date Admission Date: January 18, 2024 Physical Exam Genitourinary: Manual OB Exam: + cervical dilation 10 cm, + cervical effacement 100% and + station + 1 OB Exam Monitor Tracing: + external FHT monitor used, + external uterine monitor used, + category I and + normal FHT variability will start to push Results & Data Vital Signs (Past 12 Hours) Vital Signs Temp Pulse Resp BP Pulse Ox 01/18/24 08:10 98 01/18/24 08:10 97 H 01/18/24 08:10 80 115/71 01/18/24 08:05 98 H 98 01/18/24 08:00 96 H 97 01/18/24 07:55 91 H 97 01/18/24 07:54 88 118/77 01/18/24 07:50 89 98 01/18/24 07:45 90 97 01/18/24 07:40 88 98 01/18/24 07:39 93 H 119/72 01/18/24 07:35 91 H 98 01/18/24 07:30 89 20 98 01/18/24 07:25 80 96 01/18/24 07:24 78 108/69 01/18/24 07:20 83 96 01/18/24 07:15 36.7 C 92 H 97 01/18/24 07:10 104 H 98 01/18/24 07:09 72 103/61 01/18/24 07:05 76 96 01/18/24 07:00 75 95 01/18/24 06:55 96 01/18/24 06:55 76 01/18/24 06:55 82 108/62 01/18/24 06:50 79 96 01/18/24 06:45 83 95 01/18/24 06:40 80 95 01/18/24 06:39 83 106/62 01/18/24 06:35 84 95 01/18/24 06:30 100 H 98 01/18/24 06:25 97 01/18/24 06:25 73 01/18/24 06:25 78 98/58 L 01/18/24 06:23 84 94 01/18/24 06:20 88 96 01/18/24 06:15 92 H 97 01/18/24 06:10 91 H 96 01/18/24 06:05 83 97 01/18/24 06:02 86 108/65 01/18/24 06:00 36.8 C 01/18/24 06:00 97 01/18/24 06:00 82 01/18/24 06:00 91 H 118/66 01/18/24 05:58 82 113/58 L 01/18/24 05:56 100 H 118/63 01/18/24 05:55 90 97 01/18/24 05:54 106 H 131/84 01/18/24 05:52 113 H 118/59 L 01/18/24 05:50 96 01/18/24 05:50 102 H 01/18/24 05:50 93 H 110/61 01/18/24 05:48 105 H 117/59 L 01/18/24 05:46 100 H 112/65 01/18/24 05:45 96 H 97 01/18/24 05:44 88 108/63 01/18/24 05:42 81 108/59 L 01/18/24 05:40 88 128/61 97 01/18/24 05:38 100 H 106/62 01/18/24 05:36 106 H 113/60 01/18/24 05:35 102 H 96 01/18/24 05:34 110 H 124/70 01/18/24 05:30 106 H 97 01/18/24 05:25 131 H 97 01/18/24 03:45 18 01/18/24 01:55 92 H 121/79 01/18/24 01:53 37.0 C 18
[2024-01-18] MEDS ORDERED: HYDROCORTISONE ACETATE 25 MG SUPP PR PRN (09:13)
[2024-01-18] MEDS ORDERED: bisacodyL 10 MG SUPP PR PRN (09:13)
[2024-01-18] MEDS ORDERED: ACETAMINOPHEN 325 MG TAB PO PRN (09:13)
--- NOTE | 2024-01-18 09:14 | Delivery Summary ---
Vaginal Delivery Summary Date of Service January 18, 2024 Vaginal Delivery Summary live female ELLE over intact perineum with nuchal cord x1 reduced at time of delivery. Delayed cord clamping and Apgars 8/9 weight pending. Cord blood obtained followed by spontaneous delivery of intact placenta. No tears. QBL 85 ml. Final sponge and instrument count are correct. Mom and baby stable.
[2024-01-18] MEDS: DIPHTHER/TETAN/PERTUS Vaccine (Tdap, Adol/Adult) 0.5mL IM ONE (09:29)
--- NOTE | 2024-01-18 10:24 | Anesthesia Procedure Note ---
Date of Service January 18, 2024 Anesthesia Post Epidural Note Vital Signs Vital Signs: Temp Pulse Resp BP Pulse Ox 98.1 F 100 H 20 92/60 L 92 01/18/24 07:15 01/18/24 10:05 01/18/24 09:50 01/18/24 10:05 01/18/24 09:03 Notes Mental Status: alert / awake / arousable and participated in evaluation Nausea / Vomiting: adequately controlled Pain: adequately controlled Airway Patency, RR, SpO2: stable & adequate BP & HR: stable & adequate Hydration State: stable & adequate Neuraxial Anesthesia: was administered and sensory block is resolving Anesthetic Complications: no major complications apparent and Pt Satisfied with anesthetic care Epidural: Removed without complications and With tip intact
[2024-01-18] MEDS: CALCIUM CARBONATE 500 MG CHEWABLE TAB PO PRN (16:01)
[2024-01-18] MEDS: IBUPROFEN 600 MG TAB PO PRN (17:20)
[2024-01-18] MEDS: BENZOCAINE 20% SPRY 85 APPLN/85 GM CAN EXT PRN (17:20)
[2024-01-18 20:55] VITALS: RESP 16
[2024-01-18] MEDS: DOCUSATE SODIUM 100 MG CAP PO SCH (21:15)
[2024-01-18] MEDS: FERROUS SULFATE 325 MG TAB PO SCH (21:15)
[2024-01-19 04:23] VITALS: O2SAT 98
[2024-01-19 07:26] LABS: Hematocrit (blood only) 29.6 % (37.0-47.0); Hemoglobin 9.7 g/dl (12.0-16.0); Mean Corpuscular Hemoglobin 31.2 pg (25.0-34.0); Mean Corpuscular Hgb Conc 32.8 g/dL (32.0-36.0); Mean Corpuscular Volume 95.2 fL (80.0-100.0); Mean Platelet Volume 9.6 fL (9.4-12.4); Platelet Count 136 K/uL (130-400); RDW Coefficient of Variation 13.4 % (11.5-14.5); RDW Standard Deviation 45.2 fL (36.4-46.3); Red Blood Count 3.11 M/uL (4.20-5.40); White Blood Count 8.38 K/ul (4.8-10.8)
[2024-01-19 07:56] VITALS: BP 100/69; PULSE 86; TEMP 97.9
[2024-01-19] MEDS ORDERED: NON-FORMULARY MEDICATION (Prenat.Vits,Cal,Min-Iron-Folic Tablet) PO SCH (09:00)
--- NOTE | 2024-01-19 09:17 | Obstetrical Progress Note ---
Date of Service January 19, 2024 Assessment & Plan Admission and Anticipated Discharge Date Admission Date: January 18, 2024 Subjective Patient is seen and examined. She feels well, no complaints. Ambulating without dizziness Voiding without difficulty Tolerating regular diet with out N&V Bleeding is minimal No fever/ chills/ CP/ SOB/ N&V/ Leg pain Breast feeding without problems Vital Signs Temp Pulse Resp BP Pulse Ox O2 Del Method 01/19/24 07:05 36.6 C 86 16 100/69 98 Room Air 01/19/24 04:22 36.5 C 72 16 92/66 L 98 Room Air 01/18/24 23:59 36.6 C 81 16 95/73 L 96 Room Air Lab Results 01/18/24 01/19/24 Range/Units 02:57 07:09 WBC 8.87 8.38 (4.8-10.8) K/ul RBC 3.57 L 3.11 L (4.20-5.40) M/uL Hgb 11.2 L 9.7 L (12.0-16.0) g/dl Hct 33.0 L 29.6 L (37.0-47.0) % MCV 92.4 95.2 (80.0-100.0) fL MCH 31.4 31.2 (25.0-34.0) pg MCHC 33.9 32.8 (32.0-36.0) g/dL RDW Std Deviation 42.5 45.2 (36.4-46.3) fL RDW Coeff of Sameera 12.9 13.4 (11.5-14.5) % Plt Count 156 136 (130-400) K/uL MPV 9.5 9.6 (9.4-12.4) fL Treponema pallidum Ab Negative (Negative) PE: General: Alert, orientedx3, NAD Abd: soft, NT, fundus firm, below Umbilicus Perineum intact, Lochia rubra minimal Ext; NT, no edema AP: 23 yo s/p , ppd# 1 VSS Afebrile doing well Continue routine care All questions were answered D/C home , f/u in office Results & Data Vital Signs (Past 12 Hours) Vital Signs Temp Pulse Resp BP Pulse Ox O2 Del Method 01/19/24 07:05 36.6 C 86 16 100/69 98 Room Air 01/19/24 04:22 36.5 C 72 16 92/66 L 98 Room Air 01/18/24 23:59 36.6 C 81 16 95/73 L 96 Room Air
[2024-01-19] MEDS: PRENATAL VITAMIN 1 TAB PO SCH (09:23)
[2024-01-19] MEDS: FERROUS SULFATE 325 MG TAB PO SCH (09:26)
[2024-01-19] MEDS ORDERED: bisacodyL 5 MG TABEC PO SCH (20:00)
== END 2024-01-19 15:05 | disposition home health service (06) | DRG 807 ==
LOC: OPB 01:38 → 4S1 01:43 → SUATTDRO 02:39 → 4S1 02:39 → 4E2 11:45
DX: Z37.0 Single live birth; Z3A.39 39 weeks gestation of pregnancy; O42.02 Full-term premature rupture of membranes, onset of labor within 24 hours of rupture; O69.81X0 Labor and delivery complicated by cord around neck, without compression, not applicable or unspecified